=== PATIENT | female | born 1975 | race Caucasian/White ===

== ENCOUNTER 2018-06-06 17:06 | Inpatient (IN) | payer BC, MEDICAID ==
[~2018-06-06] VITALS: Ht 162.6 cm; Wt 55.3 kg
[2018-06-06] MEDS ORDERED: TRAZODONE HCL50 MG ORAL (17:29)
[2018-06-06] MEDS ORDERED: CYMBALTA60 MG ORAL (17:29)
[2018-06-06] MEDS ORDERED: VISTARIL50 MG ORAL (17:29)
[2018-06-06] MEDS ORDERED: WELLBUTRIN XL150 MG ORAL (17:29)
[2018-06-06] MEDS ORDERED: DICLOFENAC SODI75 MG ORAL (17:29)
[2018-06-06] MEDS ORDERED: GABAPENTIN400 MG ORAL (17:29)
[2018-06-06 17:40] VITALS: BP 112/80
[2018-06-06] MEDS ORDERED: Sodium Polystyrene Sulfonate 15gm Powder ORAL ONE (18:30)
[2018-06-06 19:18] LABS: BASOPHILS % (AUTO) 1.8 % (0.0-2.0); EOSINOPHILS % (AUTO) 1.9 % (0.0-3.0); HEMATOCRIT 43.2 % (37.0-47.0); HEMOGLOBIN 15.6 G/DL (12.0-16.0); LYMPHOCYTES % (AUTO) 29.4 % (20.0-45.0); MEAN CORPUSCULAR VOLUME 92 FL (80-99); MONOCYTES % (AUTO) 6.6 % (1.0-10.0); NEUTROPHILS % (AUTO) 60.3 % (45.0-75.0); PLATELET COUNT 276 K/UL (150-450); RED CELL DISTRIBUTION WIDTH 10.6 % (11.6-14.8); WHITE BLOOD COUNT 5.5 K/UL (4.8-10.8)
[2018-06-06 19:27] LABS: ANION GAP 4 mmol/L (5-15); BLOOD UREA NITROGEN 13 mg/dL (7-18); CALCIUM 9.8 MG/DL (8.5-10.1); CARBON DIOXIDE 33 MMOL/L (21-32); CHLORIDE 100 MMOL/L (98-107); POTASSIUM 4.9 MMOL/L (3.5-5.1); SODIUM 137 MMOL/L (136-145)
[2018-06-06 19:34] LABS: ALANINE AMINOTRANSFERASE 29 U/L (12-78); ALBUMIN 3.9 G/DL (3.4-5.0); ALBUMIN/GLOBULIN RATIO 1.1 (1.0-2.7); ALKALINE PHOSPHATASE 63 U/L (46-116); ASPARTATE AMINO TRANSFERASE 21 U/L (15-37); BILIRUBIN,TOTAL 0.4 MG/DL (0.2-1.0)
[2018-06-06 20:03] VITALS: BP 123/83
--- NOTE | 2018-06-06 20:17 | Diagnostic Imaging Report ---
EXAM: CT Abdomen and Pelvis With Intravenous Contrast CLINICAL HISTORY: ABD DIST TECHNIQUE: Axial computed tomography images of the abdomen and pelvis with intravenous contrast. CTDI is 0.15, 11.49 mGy and DLP is 603 mGy-cm. One or more of the following dose reduction techniques were used: automated exposure control, adjustment of the mA and/or kV according to patient size, use of iterative reconstruction technique. Coronal and sagittal reformatted images were created and reviewed. COMPARISON: No relevant prior studies available. FINDINGS: Lung bases: Mild atelectasis at the lung bases. Mediastinum: Small hiatal hernia. ABDOMEN: Liver: 1.7 x 1.5 cm low-density lesion in the liver adjacent to the inferior vena cava. Recommend follow-up abdominal CT or MR in 6 months for patients with low risk of malignancy, multiphasic MR for average risk patients and core biopsy for high risk patients. Gallbladder and bile ducts: The gallbladder is unremarkable. No calcified stones. No ductal dilation. Pancreas: The pancreas is unremarkable. No ductal dilation. Spleen: The spleen is unremarkable. Adrenals: The adrenals are unremarkable. Kidneys and ureters: The kidneys are unremarkable. No hydronephrosis. Stomach and bowel: Large amount of stool throughout the colon. This appears most prominent in the ascending and transverse colon. A focal area of narrowing is seen in the region of the sigmoid colon in the left lower quadrant (image 65 of series 3). This may be related to a focal area of spasm. A stricture or neoplastic process cannot entirely be excluded. Consider barium enema exam or colonoscopy for further evaluation. No definite evidence for bowel related inflammatory changes. PELVIS: Appendix: The appendix is questionably visualized in the lower abdomen/upper pelvis and is unremarkable. Bladder: The bladder is grossly unremarkable. Reproductive: Unremarkable as visualized. ABDOMEN and PELVIS: Intraperitoneal space: No free intraperitoneal fluid or free intraperitoneal gas. Bones/joints: Mild degenerative changes of the thoracolumbar spine. No acute fracture. No dislocation. Soft tissues: Unremarkable. Vasculature: The aorta is unremarkable. No abdominal aortic aneurysm. Lymph nodes: Unremarkable. No enlarged lymph nodes. Tubes, lines and devices: Intrauterine device within the uterus. IMPRESSION: 1. Large amount of stool throughout the colon. This appears most prominent in the ascending and transverse colon. 2. A focal area of narrowing is seen in the region of the sigmoid colon in the left lower quadrant (image 65 of series 3). This may be related to a focal area of spasm. A stricture or neoplastic process cannot entirely be excluded. Consider barium enema exam or colonoscopy for further evaluation. 3. Small hiatal hernia. 4. 1.7 x 1.5 cm low-density lesion in the liver adjacent to the inferior vena cava. Recommend follow-up abdominal CT or MR in 6 months for patients with low risk of malignancy, multiphasic MR for average risk patients and core biopsy for high risk patients.
--- NOTE | 2018-06-06 21:32 | Emergency Room Report ---
History of Present Illness General Chief Complaint: Abdominal Pain Source: Patient Present Illness Allergies: Coded Allergies: No Known Allergies (Unverified , 06/06/18) Patient History Past Medical History: see triage record, other - as per history of present illness Pertinent Family History: other - Social History: Reports: alcohol use, drug use - methamphetamine Last Menstrual Period: one month ago Nursing Documentation-[facility] Past Medical History: No History, Except For Hx Cardiac Problems: No Hx Hypertension: No Hx Pacemaker: No Hx Asthma: No Hx COPD: No Hx Diabetes: No Hx Cancer: No Hx Gastrointestinal Problems: Yes - Hepatitis C Hx Dialysis: No History Of Psychiatric Problem: Yes - Depression Hx Neurological Problems: No Hx Cerebrovascular Accident: No Hx Seizures: No Review of Systems Constitutional: Denies: fever, malaise Gastrointestinal: Reports: abdominal pain, constipation, nausea, vomiting All Other Systems: negative except mentioned in HPI Physical Exam Vital Signs Date Time Temp Pulse Resp B/P (MAP) Pulse Ox O2 Delivery O2 Flow Rate FiO2 06/06/18 17:21 97.8 66 16 112/80 99 Room Air 97.9 Sp02 EP Interpretation: reviewed, normal General Appearance: no apparent distress, alert, GCS 15, non-toxic Head: normocephalic, atraumatic Eyes: bilateral eye normal inspection ENT: hearing grossly normal, normal pharynx, no angioedema, normal voice Neck: full range of motion, supple/symm/no masses Respiratory: chest non-tender, lungs clear, normal breath sounds, speaking full sentences Cardiovascular #1: regular rate, rhythm, no edema Cardiovascular #2: 2+ carotid (R), 2+ carotid (L), 2+ radial (R), 2+ radial (L) , 2+ dorsalis pedis (R), 2+ dorsalis pedis (L) Gastrointestinal: normal bowel sounds, non tender, soft, no guarding, no rebound, distended, other - soft small umbilical hernia Musculoskeletal: back normal, gait/station normal, normal range of motion, non- tender, calf tenderness Neurologic: alert, oriented x3, responsive, motor strength/tone normal, sensory intact, speech normal Psychiatric: judgement/insight normal, memory normal, mood/affect normal, no suicidal/homicidal ideation Skin: normal color, no rash, warm/dry, well hydrated Lymphatic: no adenopathy Medical Decision Making Diagnostic Impression: Primary Impression: Large bowel obstruction ER Course Patient has large bowel obstruction, possible due to colon mass or stricture. Dr. Reid accepted patient on behalf of Dr. Torres. I consulted Dr. Crowe general surgeon who will consult. Labs Test 06/06/18 18:30 White Blood Count 5.5 K/UL (4.8-10.8) Red Blood Count 4.70 M/UL (4.20-5.40) Hemoglobin 15.6 G/DL (12.0-16.0) Hematocrit 43.2 % (37.0-47.0) Mean Corpuscular Volume 92 FL (80-99) Mean Corpuscular Hemoglobin 33.2 PG (27.0-31.0) Mean Corpuscular Hemoglobin Concent 36.0 G/DL (32.0-36.0) Red Cell Distribution Width 10.6 % (11.6-14.8) Platelet Count 276 K/UL (150-450) Mean Platelet Volume 5.4 FL (6.5-10.1) Neutrophils (%) (Auto) 60.3 % (45.0-75.0) Lymphocytes (%) (Auto) 29.4 % (20.0-45.0) Monocytes (%) (Auto) 6.6 % (1.0-10.0) Eosinophils (%) (Auto) 1.9 % (0.0-3.0) Basophils (%) (Auto) 1.8 % (0.0-2.0) Sodium Level 137 MMOL/L (136-145) Potassium Level 4.9 MMOL/L (3.5-5.1) Chloride Level 100 MMOL/L (98-107) Carbon Dioxide Level 33 MMOL/L (21-32) Anion Gap 4 mmol/L (5-15) Blood Urea Nitrogen 13 mg/dL (7-18) Creatinine 1.0 MG/DL (0.55-1.30) Estimat Glomerular Filtration Rate > 60 mL/min (>60) Glucose Level 80 MG/DL (74-106) Calcium Level 9.8 MG/DL (8.5-10.1) Total Bilirubin 0.4 MG/DL (0.2-1.0) Aspartate Amino Transf (AST/SGOT) 21 U/L (15-37) Alanine Aminotransferase (ALT/SGPT) 29 U/L (12-78) Alkaline Phosphatase 63 U/L (46-116) Total Protein 7.6 G/DL (6.4-8.2) Albumin 3.9 G/DL (3.4-5.0) Globulin 3.7 g/dL Albumin/Globulin Ratio 1.1 (1.0-2.7) Lipase 398 U/L (73-393) Human Chorionic Gonadotropin, Qual Negative (NEGATIVE) CT/MRI/US Diagnostic Results CT/MRI/US Diagnostic Results : Imaging Test Ordered: CT A/P large amount of stool in colon with narrowing at sigmoid colon Last Vital Signs Date Time Temp Pulse Resp B/P (MAP) Pulse Ox O2 Delivery O2 Flow Rate FiO2 06/06/18 20:03 78 17 123/83 100 Room Air 06/06/18 17:40 97.9 97.9 Disposition: ADMITTED INPATIENT Condition: Stable Referrals: NOT CHOSEN IPA/,REFERRING (PCP) Rose Mary Canas MD Jun 06, 2018 21:31
--- NOTE | 2018-06-06 21:58 | History and Physical ---
History of Present Illness General Date patient seen: Jun 06, 2018 Time patient seen: 22:00 Reason for Hospitalization: Abdominal Pain Present Illness HPI 42 yo woman presenting to ED with abdominal pain Found to have large bowel obstruction on CT Surgery consulted Admitted for further workup Notes abdominal pain on lower quadrants, particularly on left Has not had BM in 14 days; notes flatus Mild nausea no vomiting No fevers or chills PMHx: As per HPI Anxiety, depression, Bulimia FHx: Reviewed; not pertinent for this encounter SHx; No tobacco; + EtOH +meth in past Allergies: Coded Allergies: No Known Allergies (Unverified , 06/06/18) Medication History Scheduled Bupropion Hcl* (Wellbutrin Xl*), 150 MG ORAL DAILY, (Reported) Diclofenac Sod* (Voltaren*), 75 MG ORAL BID, (Reported) Duloxetine Hcl* (Cymbalta*), 60 MG ORAL DAILY, (Reported) Gabapentin* (Gabapentin*), 400 MG ORAL EVERY 6 HOURS, (Reported) Hydroxyzine Pamoate* (Vistaril*), 25 MG ORAL DAILY, (Reported) Trazodone Hcl* (Desyrel*), 50 MG ORAL BEDTIME, (Reported) Patient History Healthcare decision maker Resuscitation status Advanced Directive on File Review of Systems Constitutional: Reports: malaise, weakness Eye: Reports: no symptoms ENT: Reports: no symptoms Respiratory: Reports: no symptoms Cardiovascular: Reports: no symptoms Gastrointestinal: Reports: abdominal pain, constipation, nausea Genitourinary: Reports: no symptoms Musculoskeletal: Reports: no symptoms Skin: Reports: no symptoms Psychiatric: Reports: see HPI Neurological: Reports: no symptoms Endocrine: Reports: no symptoms Hematologic/Lymphatic: Reports: no symptoms All Other Systems: negative except mentioned in HPI Physical Exam General Appearance: mild distress Lines, tubes and drains: peripheral HEENT: normocephalic, atraumatic, anicteric, PERRL, EOMI Neck: non-tender, supple Respiratory/Chest: chest wall non-tender, lungs clear Cardiovascular/Chest: normal peripheral pulses, normal rate, regular rhythm Abdomen: decreased bowel sounds, distended, tender Extremities: normal range of motion, no calf tenderness, normal capillary refill Skin Exam: normal pigmentation, warm/dry 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, alert Lymphatic: anterior cervical, posterior cervical (L) Last 24 Hour Vital Signs Date Time Temp Pulse Resp B/P (MAP) Pulse Ox O2 Delivery O2 Flow Rate FiO2 06/06/18 20:03 78 17 123/83 100 Room Air 06/06/18 17:40 97.9 66 16 112/80 99 Room Air 97.9 06/06/18 17:21 97.8 66 16 112/80 99 Room Air 97.9 Laboratory Tests Test 06/06/18 18:30 White Blood Count 5.5 K/UL (4.8-10.8) Red Blood Count 4.70 M/UL (4.20-5.40) Hemoglobin 15.6 G/DL (12.0-16.0) Hematocrit 43.2 % (37.0-47.0) Mean Corpuscular Volume 92 FL (80-99) Mean Corpuscular Hemoglobin 33.2 PG (27.0-31.0) H Mean Corpuscular Hemoglobin Concent 36.0 G/DL (32.0-36.0) Red Cell Distribution Width 10.6 % (11.6-14.8) L Platelet Count 276 K/UL (150-450) Mean Platelet Volume 5.4 FL (6.5-10.1) L Neutrophils (%) (Auto) 60.3 % (45.0-75.0) Lymphocytes (%) (Auto) 29.4 % (20.0-45.0) Monocytes (%) (Auto) 6.6 % (1.0-10.0) Eosinophils (%) (Auto) 1.9 % (0.0-3.0) Basophils (%) (Auto) 1.8 % (0.0-2.0) Sodium Level 137 MMOL/L (136-145) Potassium Level 4.9 MMOL/L (3.5-5.1) Chloride Level 100 MMOL/L (98-107) Carbon Dioxide Level 33 MMOL/L (21-32) H Anion Gap 4 mmol/L (5-15) L Blood Urea Nitrogen 13 mg/dL (7-18) Creatinine 1.0 MG/DL (0.55-1.30) Estimat Glomerular Filtration Rate > 60 mL/min (>60) Glucose Level 80 MG/DL (74-106) Calcium Level 9.8 MG/DL (8.5-10.1) Total Bilirubin 0.4 MG/DL (0.2-1.0) Aspartate Amino Transf (AST/SGOT) 21 U/L (15-37) Alanine Aminotransferase (ALT/SGPT) 29 U/L (12-78) Alkaline Phosphatase 63 U/L (46-116) Total Protein 7.6 G/DL (6.4-8.2) Albumin 3.9 G/DL (3.4-5.0) Globulin 3.7 g/dL Albumin/Globulin Ratio 1.1 (1.0-2.7) Lipase 398 U/L (73-393) H Human Chorionic Gonadotropin, Qual Negative (NEGATIVE) Height (Feet): 5 Height (Inches): 4.00 Weight (Pounds): 120 Medications Current Medications Medications (Trade) Dose Ordered Sig/Devora Route PRN Reason Start Time Stop Time Status Last Admin Dose Admin Barium Sulfate (Readi-Cat 2) 450 ml NOW PRN ORAL Radiology Procedure 06/06/18 18:30 06/08/18 18:28 Sodium Chloride 1,000 ml @ 100 mls/hr Q10H ONCE IV 06/06/18 18:28 06/07/18 04:27 06/06/18 19:06 Assessment/Plan Status: not improved Status Narrative 42 yo woman with abdominal pain, obstipation and large bowel obstruction seen on CT scan Assessment/Plan #Large bowel obstruction Abdominal pain -Surgery input appreciated -Admit for further workup/management -NPO/Pain meds/IVF's GI consult given ?area of stricture in sigmoid colon #Elevated lipase Pancreatitis -Unclear etiology- likely EtOH -CT scan reviewed- no pancreatic lesions -IVF's/NPO #Depression/anxiety -continue home meds DVT Prophylaxis: SCD's Code Status: Full Hospital Classification declaration: Based on this initial evaluation and depending on the patient's clinical course I anticipate that this patient will require hospitalization for at least 2-3 days Disposition: Once the patient is stable to leave the hospital I anticipate the patient will likely be discharged to the following environment: Home I spent 70 minutes on this patients care and 36 minutes was dedicated to counseling and care coordination Time of note may not reflect time of encounter Maxime Reid MD Jun 06, 2018 21:58
[2018-06-06 22:00] VITALS: BP 139/88
[2018-06-06 22:13] VITALS: BP 124/86
--- NOTE | 2018-06-06 22:58 | Consultation ---
History of Present Illness General Date patient seen: Jun 06, 2018 Chief Complaint: Abdominal Pain Reason for Consultation: Large Bowel Obstruction Present Illness HPI 42 year old female with past medical history of anxiety, depression, bulimia presented to ED with complaints of abdominal pain. Patient states that she was well approximately 1 month ago but since has been developing worsening abdominal discomfort. She went to an urgent care facility this evening and after work up was told to come to ED for further evaluation. She was noted to have a distended abdomen with significant tenderness on palpation. In ED she had a CT scan which demonstrated significant stool retention in entire colon and possible stricture in sigmoid colon. She was admitted for care and management. Surgery called to evaluate for possible large bowel obstruction. Patient seen, chart reviewed, patient examined. States that she has been passing flatus even today but has not had a BM in 14 days. she is usually regular with daily BM's except for the past two weeks. denies nausea or emesis. no fever or chills. labs demonstrate elevated lipase. no prior episodes. history of two prior c sections. Allergies: Coded Allergies: No Known Allergies (Unverified , 06/06/18) Medication History Scheduled Bupropion Hcl* (Wellbutrin Xl*), 150 MG ORAL DAILY, (Reported) Diclofenac Sod* (Voltaren*), 75 MG ORAL BID, (Reported) Duloxetine Hcl* (Cymbalta*), 60 MG ORAL DAILY, (Reported) Gabapentin* (Gabapentin*), 400 MG ORAL EVERY 6 HOURS, (Reported) Hydroxyzine Pamoate* (Vistaril*), 25 MG ORAL DAILY, (Reported) Trazodone Hcl* (Desyrel*), 50 MG ORAL BEDTIME, (Reported) Patient History History Provided By: Patient, Medical Record, PMD Healthcare decision maker Resuscitation status Full Code Advanced Directive on File Past Medical/Surgical History Past Medical/Surgical History: (1) Large bowel obstruction Review of Systems Constitutional: Denies: no symptoms, see HPI, chills, sweats, fever, malaise, weakness, other Eye: Denies: no symptoms, see HPI, eye pain, blurred vision, tearing, double vision, nose pain, nose congestion, acuity changes, discharge, other ENT: Denies: no symptoms, see HPI, ear pain, ear discharge, nose pain, nose congestion, throat pain, throat swelling, mouth pain, hearing loss, nasal discharge, other Respiratory: Denies: no symptoms, see HPI, cough, orthopnea, shortness of breath, stridor, wheezing, EPPERSON, sputum, other Gastrointestinal: Reports: abdominal pain, constipation Genitourinary: Denies: no symptoms, see HPI, discharge, dysuria, frequency, hematuria, pain, retention, incontinence, urgency, vag bleed/dc, other Musculoskeletal: Denies: no symptoms, see HPI, back pain, gout, joint pain, joint swelling, muscle pain, muscle stiffness, other Skin: Denies: no symptoms, see HPI, rash, change in color, change in hair/nails , dryness, lesions, other Psychiatric: Denies: no symptoms, see HPI, prior hx, anxiety, depressed feelings, emotional problems, SI, HI, hallucinations, other Neurological: Denies: no symptoms, see HPI, headache, numbness, paresthesia, seizure, tingling, tremors, focal weakness, syncope, dizziness, other Endocrine: Denies: no symptoms, see HPI, excessive sweating, flushing, intolerance to temperature, increased thirst, increased urine, unexplained weight loss, other Hematologic/Lymphatic: Denies: no symptoms, see HPI, anemia, blood clots, easy bleeding, easy bruising, swollen glands, diathesis, other Physical Exam General Appearance: no apparent distress, alert Lines, tubes and drains: peripheral HEENT: normocephalic, atraumatic, mucous membranes moist, PERRL Neck: supple, normal inspection Respiratory/Chest: lungs clear, normal breath sounds, no respiratory distress, no accessory muscle use Cardiovascular/Chest: normal peripheral pulses, normal rate, regular rhythm Abdomen: soft, distended, guarding, tender, mass, other - stool mass palpable Genitourinary/Rectal: other Extremities: normal inspection, no calf tenderness, normal capillary refill Skin Exam: normal pigmentation, warm/dry Neurologic: alert, oriented x 3, responsive Last 24 Hour Vital Signs Date Time Temp Pulse Resp B/P (MAP) Pulse Ox O2 Delivery O2 Flow Rate FiO2 06/06/18 22:28 Room Air 06/06/18 22:13 97.9 69 124/86 (99) 97.9 06/06/18 20:03 78 17 123/83 100 Room Air 06/06/18 17:40 97.9 66 16 112/80 99 Room Air 97.9 06/06/18 17:21 97.8 66 16 112/80 99 Room Air 97.9 Laboratory Tests Test 06/06/18 18:30 White Blood Count 5.5 K/UL (4.8-10.8) Red Blood Count 4.70 M/UL (4.20-5.40) Hemoglobin 15.6 G/DL (12.0-16.0) Hematocrit 43.2 % (37.0-47.0) Mean Corpuscular Volume 92 FL (80-99) Mean Corpuscular Hemoglobin 33.2 PG (27.0-31.0) H Mean Corpuscular Hemoglobin Concent 36.0 G/DL (32.0-36.0) Red Cell Distribution Width 10.6 % (11.6-14.8) L Platelet Count 276 K/UL (150-450) Mean Platelet Volume 5.4 FL (6.5-10.1) L Neutrophils (%) (Auto) 60.3 % (45.0-75.0) Lymphocytes (%) (Auto) 29.4 % (20.0-45.0) Monocytes (%) (Auto) 6.6 % (1.0-10.0) Eosinophils (%) (Auto) 1.9 % (0.0-3.0) Basophils (%) (Auto) 1.8 % (0.0-2.0) Sodium Level 137 MMOL/L (136-145) Potassium Level 4.9 MMOL/L (3.5-5.1) Chloride Level 100 MMOL/L (98-107) Carbon Dioxide Level 33 MMOL/L (21-32) H Anion Gap 4 mmol/L (5-15) L Blood Urea Nitrogen 13 mg/dL (7-18) Creatinine 1.0 MG/DL (0.55-1.30) Estimat Glomerular Filtration Rate > 60 mL/min (>60) Glucose Level 80 MG/DL (74-106) Calcium Level 9.8 MG/DL (8.5-10.1) Total Bilirubin 0.4 MG/DL (0.2-1.0) Aspartate Amino Transf (AST/SGOT) 21 U/L (15-37) Alanine Aminotransferase (ALT/SGPT) 29 U/L (12-78) Alkaline Phosphatase 63 U/L (46-116) Total Protein 7.6 G/DL (6.4-8.2) Albumin 3.9 G/DL (3.4-5.0) Globulin 3.7 g/dL Albumin/Globulin Ratio 1.1 (1.0-2.7) Lipase 398 U/L (73-393) H Human Chorionic Gonadotropin, Qual Negative (NEGATIVE) Height (Feet): 5 Height (Inches): 4.00 Weight (Pounds): 120 Medications Current Medications Medications (Trade) Dose Ordered Sig/Devora Route PRN Reason Start Time Stop Time Status Last Admin Dose Admin Barium Sulfate (Readi-Cat 2) 450 ml NOW PRN ORAL Radiology Procedure 06/06/18 18:30 06/08/18 18:28 Sodium Chloride 1,000 ml @ 100 mls/hr Q10H ONCE IV 06/06/18 18:28 06/07/18 04:27 06/06/18 19:06 Assessment/Plan Problem List: (1) Large bowel obstruction Assessment & Plan: 42 year old female with large bowel obstruction. etiology unknown. has been obstructed for 14+ days likely. CT with significant stool throughout colon. exam with distention and palpable enlarged stool filled colon. CT demonstrates area of possible sigmoid structure vs mass? 1. Large amount of stool throughout the colon. This appears most prominent in the ascending and transverse colon. 2. A focal area of narrowing is seen in the region of the sigmoid colon in the left lower quadrant (image 65 of series 3). This may be related to a focal area of spasm. A stricture or neoplastic process cannot entirely be excluded. Consider barium enema exam or colonoscopy for further evaluation. -NPO -IV fluids -does not need NG tube at this time. mainly large bowel obstruction but dose have some fluid filled small bowel but no n/v -will discuss with GI. will likely need colonoscopy but concerns for prep given how distended her colon is with stool. will start with some enemas -appreciate GI input -thank you for this consultation. will follow with recs. ICD Codes: K56.609 - Unspecified intestinal obstruction, unspecified as to partial versus complete obstruction SNOMED: [id number] Status: unchanged Alec Crowe Jun 06, 2018 22:58
[2018-06-06] MEDS ORDERED: Acetaminophen 650 MG SUPP RECTAL PRN (23:00)
[2018-06-06] MEDS ORDERED: Morphine Sulfate 2mg/ml Inj IVP PRN (23:00)
[2018-06-06] MEDS: TraZODone HCl 25 mg tablet ORAL SCH ×2 (23:00→23:55)
[2018-06-06] MEDS ORDERED: LORazepam Inj 2mg/ml 1ml IV PRN (23:00)
[2018-06-06] MEDS ORDERED: DiphenhydrAMINE 50mg/ml Inj IVP PRN (23:15)
[2018-06-06] MEDS: D5 1/2NS w/KCl 20mEq 1,000 ML IV SCH (23:56)
[2018-06-07] VITALS: BP 124/86
[2018-06-07] MEDS: Morphine Sulfate 2mg/ml Inj IVP PRN ×2 (01:16→17:48)
[2018-06-07 06:36] LABS: BASOPHILS % (AUTO) 1.4 % (0.0-2.0); EOSINOPHILS % (AUTO) 2.1 % (0.0-3.0); HEMATOCRIT 42.6 % (37.0-47.0); HEMOGLOBIN 15.3 G/DL (12.0-16.0); LYMPHOCYTES % (AUTO) 28.8 % (20.0-45.0); MEAN CORPUSCULAR VOLUME 91 FL (80-99); MONOCYTES % (AUTO) 7.9 % (1.0-10.0); NEUTROPHILS % (AUTO) 59.7 % (45.0-75.0); PLATELET COUNT 241 K/UL (150-450); RED CELL DISTRIBUTION WIDTH 10.4 % (11.6-14.8); WHITE BLOOD COUNT 4.8 K/UL (4.8-10.8)
[2018-06-07 06:50] LABS: ALANINE AMINOTRANSFERASE 23 U/L (12-78); ALBUMIN 3.2 G/DL (3.4-5.0); ALKALINE PHOSPHATASE 53 U/L (46-116); ANION GAP 3 mmol/L (5-15); ASPARTATE AMINO TRANSFERASE 17 U/L (15-37); BILIRUBIN,TOTAL 0.3 MG/DL (0.2-1.0); BLOOD UREA NITROGEN 13 mg/dL (7-18); CALCIUM 8.9 MG/DL (8.5-10.1); CARBON DIOXIDE 33 MMOL/L (21-32); CHLORIDE 106 MMOL/L (98-107); CREATININE 1.1 MG/DL (0.55-1.30); POTASSIUM 4.6 MMOL/L (3.5-5.1); SODIUM 142 MMOL/L (136-145)
[2018-06-07 08:00] VITALS: BP 133/83
[2018-06-07] MEDS: BuPROPion XL 150mg tab ORAL SCH (09:00)
[2018-06-07] MEDS: DULoxetine 30mg cap ORAL SCH (09:00)
[2018-06-07] MEDS: HydrOXYzine 50mg tab ORAL SCH (09:00)
[2018-06-07] MEDS: D5 1/2NS w/KCl 20mEq 1,000 ML IV SCH ×2 (10:09→20:18)
[2018-06-07] MEDS: Fleet's Enema 133ml RECTAL SCH ×3 (10:09→20:19)
--- NOTE | 2018-06-07 10:22 | General Surgery Progress Note ---
General Surgery-Progress Note Subjective Additional Comments no acute events. states pain a bit better. no n/v/f/c. flatus but no BM yet. Objective Last 24 Hour Vital Signs Date Time Temp Pulse Resp B/P (MAP) Pulse Ox O2 Delivery O2 Flow Rate FiO2 06/07/18 08:00 97.9 68 18 133/83 (100) 100 97.9 06/07/18 00:00 97.9 69 124/86 (99) 97.9 06/06/18 22:28 Room Air 06/06/18 22:13 97.9 69 124/86 (99) 97.9 06/06/18 22:00 65 19 139/88 100 Room Air 06/06/18 22:00 65 19 139/88 100 Room Air 06/06/18 20:03 78 17 123/83 100 Room Air 06/06/18 17:40 97.9 66 16 112/80 99 Room Air 97.9 06/06/18 17:21 97.8 66 16 112/80 99 Room Air 97.9 Drains: none Cardiovascular: RSR Respiratory: clear Abdomen: soft, distended, tenderness, present bowel sounds Extremities: no edema, no tenderness, no cyanosis Laboratory Tests Test 06/06/18 18:30 06/07/18 05:30 White Blood Count 5.5 K/UL (4.8-10.8) 4.8 K/UL (4.8-10.8) Red Blood Count 4.70 M/UL (4.20-5.40) 4.70 M/UL (4.20-5.40) Hemoglobin 15.6 G/DL (12.0-16.0) 15.3 G/DL (12.0-16.0) Hematocrit 43.2 % (37.0-47.0) 42.6 % (37.0-47.0) Mean Corpuscular Volume 92 FL (80-99) 91 FL (80-99) Mean Corpuscular Hemoglobin 33.2 PG (27.0-31.0) H 32.5 PG (27.0-31.0) H Mean Corpuscular Hemoglobin Concent 36.0 G/DL (32.0-36.0) 35.9 G/DL (32.0-36.0) Red Cell Distribution Width 10.6 % (11.6-14.8) L 10.4 % (11.6-14.8) L Platelet Count 276 K/UL (150-450) 241 K/UL (150-450) Mean Platelet Volume 5.4 FL (6.5-10.1) L 6.0 FL (6.5-10.1) L Neutrophils (%) (Auto) 60.3 % (45.0-75.0) 59.7 % (45.0-75.0) Lymphocytes (%) (Auto) 29.4 % (20.0-45.0) 28.8 % (20.0-45.0) Monocytes (%) (Auto) 6.6 % (1.0-10.0) 7.9 % (1.0-10.0) Eosinophils (%) (Auto) 1.9 % (0.0-3.0) 2.1 % (0.0-3.0) Basophils (%) (Auto) 1.8 % (0.0-2.0) 1.4 % (0.0-2.0) Sodium Level 137 MMOL/L (136-145) 142 MMOL/L (136-145) Potassium Level 4.9 MMOL/L (3.5-5.1) 4.6 MMOL/L (3.5-5.1) Chloride Level 100 MMOL/L (98-107) 106 MMOL/L (98-107) Carbon Dioxide Level 33 MMOL/L (21-32) H 33 MMOL/L (21-32) H Anion Gap 4 mmol/L (5-15) L 3 mmol/L (5-15) L Blood Urea Nitrogen 13 mg/dL (7-18) 13 mg/dL (7-18) Creatinine 1.0 MG/DL (0.55-1.30) 1.1 MG/DL (0.55-1.30) Estimat Glomerular Filtration Rate > 60 mL/min (>60) 53.9 mL/min (>60) Glucose Level 80 MG/DL (74-106) 86 MG/DL (74-106) Calcium Level 9.8 MG/DL (8.5-10.1) 8.9 MG/DL (8.5-10.1) Total Bilirubin 0.4 MG/DL (0.2-1.0) 0.3 MG/DL (0.2-1.0) Aspartate Amino Transf (AST/SGOT) 21 U/L (15-37) 17 U/L (15-37) Alanine Aminotransferase (ALT/SGPT) 29 U/L (12-78) 23 U/L (12-78) Alkaline Phosphatase 63 U/L (46-116) 53 U/L (46-116) Total Protein 7.6 G/DL (6.4-8.2) 6.4 G/DL (6.4-8.2) Albumin 3.9 G/DL (3.4-5.0) 3.2 G/DL (3.4-5.0) L Globulin 3.7 g/dL 3.2 g/dL Albumin/Globulin Ratio 1.1 (1.0-2.7) 1.0 (1.0-2.7) Lipase 398 U/L (73-393) H 184 U/L (73-393) Human Chorionic Gonadotropin, Qual Negative (NEGATIVE) Prothrombin Time 10.6 SEC (9.30-11.50) Prothromb Time International Ratio 1.0 (0.9-1.1) Activated Partial Thromboplast Time 28 SEC (23-33) Plan Problems: (1) Large bowel obstruction Assessment & Plan: 42 year old female with large bowel obstruction. etiology unknown. has been obstructed for 14+ days likely. CT with significant stool throughout colon. exam with distention and palpable enlarged stool filled colon. CT demonstrates area of possible sigmoid structure vs mass? 1. Large amount of stool throughout the colon. This appears most prominent in the ascending and transverse colon. 2. A focal area of narrowing is seen in the region of the sigmoid colon in the left lower quadrant (image 65 of series 3). This may be related to a focal area of spasm. A stricture or neoplastic process cannot entirely be excluded. Consider barium enema exam or colonoscopy for further evaluation. -NPO (hold oral meds for now unless necessary) okay for some ice chips for comfort -IV fluids -does not need NG tube at this time. mainly large bowel obstruction but dose have some fluid filled small bowel but no n/v -will discuss with GI. will likely need colonoscopy but concerns for prep given how distended her colon is with stool. will start with some enemas -Enema's q8h for 48hrs. -thank you for this consultation. will follow with recs. Alec Crowe Jun 07, 2018 10:22
--- NOTE | 2018-06-07 10:37 | Diagnostic Imaging Report ---
INDICATION: Abdominal distention COMPARISON: CT dated 06/06/18 FINDINGS: Single frontal view of the abdomen demonstrates a normal bowel gas pattern. Copious amounts of stool are seen in the colon suggestive of constipation. Intrauterine device. No evidence of organomegaly or obvious soft tissue masses. Focal calcification adjacent to the right femoral head measuring 2.2 cm. The osseous structures are intact. IMPRESSION: 1. Copious amounts of stool in the colon suggestive of constipation. 2. intrauterine device.
--- NOTE | 2018-06-07 11:00 | General Progress Note ---
Assessment/Plan Status: not improved Status Narrative 42 yo woman with abdominal pain, obstipation and large bowel obstruction seen on CT scan Assessment/Plan #Large bowel obstruction Abdominal pain -Surgery input appreciated -NPO/Pain meds/IVF's -GI consult given ?area of stricture in sigmoid colon for colonoscopy -Enemas Q8 to prep bowel #Elevated lipase Pancreatitis -Unclear etiology- likely EtOH -CT scan reviewed- no pancreatic lesions -IVF's/NPO #Depression/anxiety -continue home meds DVT Prophylaxis: scd's Code status: full Hospital Classification declaration: Based on this initial evaluation, and depending on the patient's clinical course, I anticipate that this patient will require hospitalization for 2-3 days. Disposition: Once the patient is stable to leave the hospital, I anticipate the patient will likely be discharged to the following environment:Home I spent 45 minutes on this patient's case, and 23 minutes was dedicated to counseling and/or care coordination. Time of note may not reflect time of encounter. Subjective Date patient seen: Jun 07, 2018 Time patient seen: 11:22 ROS Limited/Unobtainable: No Constitutional: Reports: malaise, weakness HEENT: Reports: no symptoms Cardiovascular: Reports: no symptoms Respiratory: Reports: no symptoms Gastrointestinal/Abdominal: Reports: abdomen distended, abdominal pain, constipated, nausea, poor appetite, poor fluid intake Genitourinary: Reports: no symptoms Neurologic/Psychiatric: Reports: anxiety Endocrine: Reports: no symptoms Hematologic/Lymphatic: Reports: no symptoms Allergies: Coded Allergies: No Known Allergies (Unverified , 06/06/18) All Systems: reviewed and negative except above Subjective Events of overnight noted Chart reviewed by me Patient with continued pain and abdominal distension Had enema but was unable to keep fluid in Objective Last 24 Hour Vital Signs Date Time Temp Pulse Resp B/P (MAP) Pulse Ox O2 Delivery O2 Flow Rate FiO2 06/07/18 08:00 97.9 68 18 133/83 (100) 100 97.9 06/07/18 00:00 97.9 69 124/86 (99) 97.9 06/06/18 22:28 Room Air 06/06/18 22:13 97.9 69 124/86 (99) 97.9 06/06/18 22:00 65 19 139/88 100 Room Air 06/06/18 22:00 65 19 139/88 100 Room Air 06/06/18 20:03 78 17 123/83 100 Room Air 06/06/18 17:40 97.9 66 16 112/80 99 Room Air 97.9 06/06/18 17:21 97.8 66 16 112/80 99 Room Air 97.9 Laboratory Tests 06/06/18 18:30: White Blood Count 5.5, Red Blood Count 4.70, Hemoglobin 15.6, Hematocrit 43.2, Mean Corpuscular Volume 92, Mean Corpuscular Hemoglobin 33.2H, Mean Corpuscular Hemoglobin Concent 36.0, Red Cell Distribution Width 10.6L, Platelet Count 276, Mean Platelet Volume 5.4L, Neutrophils (%) (Auto) 60.3, Lymphocytes (%) (Auto) 29.4, Monocytes (%) (Auto) 6.6, Eosinophils (%) (Auto) 1.9, Basophils (%) (Auto ) 1.8, Sodium Level 137, Potassium Level 4.9, Chloride Level 100, Carbon Dioxide Level 33H, Anion Gap 4L, Blood Urea Nitrogen 13, Creatinine 1.0, Estimat Glomerular Filtration Rate > 60, Glucose Level 80, Calcium Level 9.8, Total Bilirubin 0.4, Aspartate Amino Transf (AST/SGOT) 21, Alanine Aminotransferase (ALT/SGPT) 29, Alkaline Phosphatase 63, Total Protein 7.6, Albumin 3.9, Globulin 3.7, Albumin/Globulin Ratio 1.1, Lipase 398H, Human Chorionic Gonadotropin, Qual Negative 06/07/18 05:30: White Blood Count 4.8, Red Blood Count 4.70, Hemoglobin 15.3, Hematocrit 42.6, Mean Corpuscular Volume 91, Mean Corpuscular Hemoglobin 32.5H, Mean Corpuscular Hemoglobin Concent 35.9, Red Cell Distribution Width 10.4L, Platelet Count 241, Mean Platelet Volume 6.0L, Neutrophils (%) (Auto) 59.7, Lymphocytes (%) (Auto) 28.8, Monocytes (%) (Auto) 7.9, Eosinophils (%) (Auto) 2.1, Basophils (%) (Auto ) 1.4, Sodium Level 142, Potassium Level 4.6, Chloride Level 106, Carbon Dioxide Level 33H, Anion Gap 3L, Blood Urea Nitrogen 13, Creatinine 1.1, Estimat Glomerular Filtration Rate 53.9, Glucose Level 86, Calcium Level 8.9, Total Bilirubin 0.3, Aspartate Amino Transf (AST/SGOT) 17, Alanine Aminotransferase (ALT/SGPT) 23, Alkaline Phosphatase 53, Total Protein 6.4, Albumin 3.2L, Globulin 3.2, Albumin/Globulin Ratio 1.0, Lipase 184, Prothrombin Time 10.6, Prothromb Time International Ratio 1.0, Activated Partial Thromboplast Time 28 Height (Feet): 5 Height (Inches): 4.00 Weight (Pounds): 120 General Appearance: alert, moderate distress EENT: PERRL/EOMI, normal ENT inspection, TMs normal, pale conjunctivae Neck: non-tender, supple Cardiovascular: normal peripheral pulses, normal rate, regular rhythm Respiratory/Chest: chest wall non-tender, lungs clear Abdomen: hypoactive bowel sounds, decreased bowel sounds, distended, tender Pelvis: normal external exam Extremities: normal range of motion, no calf tenderness, normal capillary refill Edema: no edema noted Arm (L), no edema noted Arm (R), no edema noted Leg (L), no edema noted Leg (R) Neurologic: alert, responsive Skin: normal pigmentation, warm/dry, palled Lymphatic: normal anterior cervical (L), normal anterior cervical (R) Maxime Reid MD Jun 07, 2018 11:00
[2018-06-07 12:00] VITALS: BP 102/59
[2018-06-07 16:00] VITALS: BP 118/79
[2018-06-07 20:00] VITALS: BP 135/83
[2018-06-07] MEDS: TraZODone 50mg tab ORAL SCH (20:19)
[2018-06-08] VITALS: BP 101/69
[2018-06-08 04:00] VITALS: BP 100/69
[2018-06-08] MEDS: D5 1/2NS w/KCl 20mEq 1,000 ML IV SCH ×3 (06:30→20:42)
--- NOTE | 2018-06-08 06:46 | General Surgery Progress Note ---
General Surgery-Progress Note Subjective Additional Comments doing well with enema. had two bm's thus far. pain okay no n/v/f/c. Objective Last 24 Hour Vital Signs Date Time Temp Pulse Resp B/P (MAP) Pulse Ox O2 Delivery O2 Flow Rate FiO2 06/08/18 04:00 98.7 88 18 100/69 (79) 95 98.7 06/08/18 00:00 98.7 93 19 101/69 (80) 98 98.7 06/07/18 21:00 Room Air 06/07/18 20:00 99.8 101 18 135/83 (100) 97 99.8 06/07/18 16:00 98.0 87 20 118/79 (92) 97 98.0 06/07/18 12:00 97.4 73 18 102/59 (73) 97 97.4 06/07/18 09:00 Room Air 06/07/18 08:00 97.9 68 18 133/83 (100) 100 97.9 I&O Intake and Output 06/07/18 06/08/18 19:00 07:00 Intake Total 1100 ml 800 ml Balance 1100 ml 800 ml Intake IV Total 1100 ml 800 ml # Voids 5 2 # Bowel Movements 1 3 Cardiovascular: RSR Respiratory: clear Abdomen: soft, distended, tenderness, present bowel sounds Extremities: no cyanosis Plan Problems: (1) Large bowel obstruction Assessment & Plan: 42 year old female with large bowel obstruction. etiology unknown. has been obstructed for 14+ days likely. CT with significant stool throughout colon. exam with distention and palpable enlarged stool filled colon. CT demonstrates area of possible sigmoid structure vs mass? 1. Large amount of stool throughout the colon. This appears most prominent in the ascending and transverse colon. 2. A focal area of narrowing is seen in the region of the sigmoid colon in the left lower quadrant (image 65 of series 3). This may be related to a focal area of spasm. A stricture or neoplastic process cannot entirely be excluded. Consider barium enema exam or colonoscopy for further evaluation. -NPO (hold oral meds for now unless necessary) okay for some ice chips for comfort -IV fluids -does not need NG tube at this time. mainly large bowel obstruction but dose have some fluid filled small bowel but no n/v -will discuss with GI. will likely need colonoscopy but concerns for prep given how distended her colon is with stool. will start with some enemas -Enema's q8h for 48hrs. -thank you for this consultation. will follow with yvonne. Alec Crowe Jun 08, 2018 06:45
[2018-06-08 08:00] VITALS: BP 123/74
[2018-06-08] MEDS: DULoxetine 30mg cap ORAL SCH (09:28)
[2018-06-08] MEDS: HydrOXYzine 50mg tab ORAL SCH (09:28)
[2018-06-08] MEDS: BuPROPion XL 150mg tab ORAL SCH (09:28)
[2018-06-08] MEDS: Fleet's Enema 133ml RECTAL SCH ×2 (10:41→17:31)
[2018-06-08 11:50] VITALS: BP 108/75
[2018-06-08 16:00] VITALS: BP 120/82
--- NOTE | 2018-06-08 18:18 | General Progress Note ---
Assessment/Plan Status: progressing Status Narrative 42 yo woman with abdominal pain, obstipation and large bowel obstruction seen on CT scan Assessment/Plan #Large bowel obstruction #Abdominal pain -Surgery input appreciated -NPO/Pain meds/IVF's -GI consult given ?area of stricture in sigmoid colon for colonoscopy -Enemas Q8 to prep bowel -No NGT for now #Elevated lipase Pancreatitis -Unclear etiology- likely EtOH -CT scan reviewed- no pancreatic lesions -IVF's/NPO #Depression/anxiety -continue home meds DVT Prophylaxis: scd's Code status: full Hospital Classification declaration: Based on this initial evaluation, and depending on the patient's clinical course, I anticipate that this patient will require hospitalization for 2-3 days. Disposition: Once the patient is stable to leave the hospital, I anticipate the patient will likely be discharged to the following environment:Home I spent 45 minutes on this patient's case, and 23 minutes was dedicated to counseling and/or care coordination. Time of note may not reflect time of encounter. Subjective Date patient seen: Jun 08, 2018 Time patient seen: 11:33 ROS Limited/Unobtainable: No Constitutional: Reports: malaise, weakness HEENT: Reports: no symptoms Cardiovascular: Reports: no symptoms Respiratory: Reports: no symptoms Gastrointestinal/Abdominal: Reports: abdomen distended, constipated, nausea, poor appetite Genitourinary: Reports: no symptoms Neurologic/Psychiatric: Reports: anxiety, depressed Endocrine: Reports: no symptoms Hematologic/Lymphatic: Reports: no symptoms Allergies: Coded Allergies: No Known Allergies (Unverified , 06/06/18) All Systems: reviewed and negative except above Subjective Events of overnight noted Chart reviewed Patient with BMx2 Abdominal distension and pain somewhat controlled No N/V Objective Last 24 Hour Vital Signs Date Time Temp Pulse Resp B/P (MAP) Pulse Ox O2 Delivery O2 Flow Rate FiO2 06/08/18 16:00 97.0 64 18 120/82 (95) 99 97.0 06/08/18 12:04 98.6 06/08/18 11:50 98.6 98 18 108/75 (86) 98 98.6 06/08/18 11:34 98.2 06/08/18 09:00 Room Air 06/08/18 08:00 98.2 80 18 123/74 (90) 99 98.2 06/08/18 04:00 98.7 88 18 100/69 (79) 95 98.7 06/08/18 00:00 98.7 93 19 101/69 (80) 98 98.7 06/07/18 21:00 Room Air 06/07/18 20:00 99.8 101 18 135/83 (100) 97 99.8 Intake and Output 06/07/18 06/08/18 19:00 07:00 Intake Total 1100 ml 800 ml Balance 1100 ml 800 ml IV Total 1100 ml 800 ml # Voids 5 2 # Bowel Movements 1 3 Height (Feet): 5 Height (Inches): 4.00 Weight (Pounds): 120 General Appearance: alert, mild distress, thin EENT: PERRL/EOMI, normal ENT inspection, TMs normal, pharynx normal, pale conjunctivae Neck: non-tender, supple Cardiovascular: normal peripheral pulses, normal rate, regular rhythm Respiratory/Chest: chest wall non-tender, lungs clear Abdomen: decreased bowel sounds, distended, tender Pelvis: normal external exam Extremities: normal range of motion, non-tender Edema: no edema noted Arm (L), no edema noted Arm (R), no edema noted Leg (L), no edema noted Leg (R) Neurologic: alert, responsive Skin: normal pigmentation, warm/dry Lymphatic: normal anterior cervical (L), normal anterior cervical (R), normal posterior cervical (L), normal posterior cervical (R) Maxime Reid MD Jun 08, 2018 18:16
[2018-06-08 20:00] VITALS: BP 119/68
[2018-06-08] MEDS: TraZODone 50mg tab ORAL SCH (20:42)
[2018-06-09] VITALS: BP 130/89
[2018-06-09] MEDS: Fleet's Enema 133ml RECTAL SCH (00:18)
[2018-06-09 04:00] VITALS: BP 132/82
[2018-06-09] MEDS: D5 1/2NS w/KCl 20mEq 1,000 ML IV SCH ×2 (06:01→17:44)
[2018-06-09 08:34] VITALS: BP 115/82
[2018-06-09] MEDS: DULoxetine 30mg cap ORAL SCH (08:59)
[2018-06-09] MEDS: HydrOXYzine 50mg tab ORAL SCH (09:00)
[2018-06-09] MEDS: BuPROPion XL 150mg tab ORAL SCH (09:01)
--- NOTE | 2018-06-09 11:26 | General Progress Note ---
Assessment/Plan Status: stable Assessment/Plan #Large bowel obstruction #Abdominal pain -Surgery input appreciated -NPO/Pain meds/IVF's -GI consulted given ?area of stricture in sigmoid colon for colonoscopy- plan for colonoscopy tomororw -Enemas Q8 to prep bowel -No NGT for now #Elevated lipase Pancreatitis -Unclear etiology- likely EtOH -CT scan reviewed- no pancreatic lesions -IVF's/NPO #Depression/anxiety -continue home meds DVT Prophylaxis: scd's Code status: full Hospital Classification declaration: Based on this initial evaluation, and depending on the patient's clinical course, I anticipate that this patient will require hospitalization for 2-3 days. Disposition: Once the patient is stable to leave the hospital, I anticipate the patient will likely be discharged to the following environment:Home I spent 45 minutes on this patient's case, and 23 minutes was dedicated to counseling and/or care coordination. Time of note may not reflect time of encounter. Subjective Date patient seen: Jun 09, 2018 Time patient seen: 11:20 ROS Limited/Unobtainable: No Constitutional: Reports: malaise, weakness HEENT: Reports: no symptoms Cardiovascular: Reports: no symptoms Respiratory: Reports: no symptoms Gastrointestinal/Abdominal: Reports: abdomen distended, abdominal pain, constipated Genitourinary: Reports: no symptoms Neurologic/Psychiatric: Reports: no symptoms Endocrine: Reports: no symptoms Hematologic/Lymphatic: Reports: no symptoms Allergies: Coded Allergies: No Known Allergies (Unverified , 06/06/18) All Systems: reviewed and negative except above Subjective Events of overnight noted Chart reviewed Patient with BMx2 Abdominal distension and pain somewhat controlled No N/V Plan for colonoscopy tomorrow Objective Last 24 Hour Vital Signs Date Time Temp Pulse Resp B/P (MAP) Pulse Ox O2 Delivery O2 Flow Rate FiO2 06/09/18 09:00 Room Air 06/09/18 08:34 98.5 82 18 115/82 (93) 98 98.5 06/09/18 04:00 97.5 80 17 132/82 (99) 97 97.5 06/09/18 00:00 99.1 84 18 130/89 (103) 98 99.1 06/08/18 21:00 Room Air 06/08/18 20:00 98.4 78 19 119/68 (85) 98 98.4 06/08/18 16:00 97.0 64 18 120/82 (95) 99 97.0 06/08/18 12:04 98.6 06/08/18 11:50 98.6 98 18 108/75 (86) 98 98.6 06/08/18 11:34 98.2 Intake and Output 06/08/18 06/09/18 19:00 07:00 Intake Total 1580 ml 1900 ml Balance 1580 ml 1900 ml Intake Oral 480 ml 800 ml IV Total 1100 ml 1100 ml # Voids 4 2 # Bowel Movements 1 2 Height (Feet): 5 Height (Inches): 4.00 Weight (Pounds): 120 General Appearance: no apparent distress, alert, thin EENT: PERRL/EOMI, normal ENT inspection, TMs normal, pale conjunctivae Neck: non-tender, supple Cardiovascular: normal peripheral pulses, regular rhythm, regularly irregular Respiratory/Chest: lungs clear, normal breath sounds Abdomen: hypoactive bowel sounds, distended, tender Pelvis: normal external exam Extremities: normal range of motion Edema: no edema noted Arm (L), no edema noted Arm (R) Neurologic: alert, oriented x 3 Skin: normal pigmentation, warm/dry Lymphatic: normal anterior cervical (L), normal anterior cervical (R) Maxime Reid MD Jun 09, 2018 11:26
--- NOTE | 2018-06-09 12:05 | General Surgery Progress Note ---
General Surgery-Progress Note Subjective Additional Comments no acute events. fortunately seems enema's working as she has had multiple bm' s since. started on clears yesterday and tolerating. pain improved. no n/v/f/ c. labs okay Objective Last 24 Hour Vital Signs Date Time Temp Pulse Resp B/P (MAP) Pulse Ox O2 Delivery O2 Flow Rate FiO2 06/09/18 09:00 Room Air 06/09/18 08:34 98.5 82 18 115/82 (93) 98 98.5 06/09/18 04:00 97.5 80 17 132/82 (99) 97 97.5 06/09/18 00:00 99.1 84 18 130/89 (103) 98 99.1 06/08/18 21:00 Room Air 06/08/18 20:00 98.4 78 19 119/68 (85) 98 98.4 06/08/18 16:00 97.0 64 18 120/82 (95) 99 97.0 I&O Intake and Output 06/08/18 06/09/18 19:00 07:00 Intake Total 1580 ml 1900 ml Balance 1580 ml 1900 ml Intake Oral 480 ml 800 ml IV Total 1100 ml 1100 ml # Voids 4 2 # Bowel Movements 1 2 Drains: none Cardiovascular: RSR Respiratory: clear Abdomen: soft, distended, tenderness, present bowel sounds Extremities: no cyanosis Plan Problems: (1) Large bowel obstruction Assessment & Plan: 42 year old female with large bowel obstruction. etiology unknown. has been obstructed for 14+ days likely. CT with significant stool throughout colon. exam with distention and palpable enlarged stool filled colon. CT demonstrates area of possible sigmoid structure vs mass? 1. Large amount of stool throughout the colon. This appears most prominent in the ascending and transverse colon. 2. A focal area of narrowing is seen in the region of the sigmoid colon in the left lower quadrant (image 65 of series 3). This may be related to a focal area of spasm. A stricture or neoplastic process cannot entirely be excluded. Consider barium enema exam or colonoscopy for further evaluation. -clears; bowel prep -npo p mn -colonoscopy possibly tomorrow -IV fluids -thank you for this consultation. will follow with recs. Alec Crowe Jun 09, 2018 12:05
--- NOTE | 2018-06-09 13:07 | GI Initial Consult Note ---
History of Present Illness General Date patient seen: Jun 09, 2018 Time patient seen: 14:17 Reason for Hospitalization: Abdominal Pain Referring physician: EDDIE SALDAÑA Reason for Consultation: Large Bowel Obstruction Present Illness HPI 42 year old female with past medical history of anxiety, depression, bulimia presented to ED with complaints of abdominal pain. Patient states that she was well approximately 1 month ago but since has been developing worsening abdominal discomfort. She went to an urgent care facility this evening and after work up was told to come to ED for further evaluation. She was noted to have a distended abdomen with significant tenderness on palpation. In ED she had a CT scan which demonstrated significant stool retention in entire colon and possible stricture in sigmoid colon. She was admitted for care and management. Surgery called to evaluate for possible large bowel obstruction. Patient seen, chart reviewed, patient examined. States that she has been passing flatus even today but has not had a BM in 14 days. she is usually regular with daily BM's except for the past two weeks. denies nausea or emesis. no fever or chills. labs demonstrate elevated lipase. no prior episodes. history of two prior c sections. GI consulted for noted colonic stricture as seen on recent CT. Pt seen, awake A &Ox4 NAD with no active s/sx of N/V/D. Denies any abdominal pain at this time, stated she had no BM x 14 days and she had severe abdominal distention. Labs reviewed show no leukocytosis, no anemia. Denies any current ETOH, IVDA, or tobacco use. No known history of endoscopy / colonoscopy. Home Meds Reported Medications Bupropion Hcl* (WELLBUTRIN XL*) 150 Mg Tab.er.24h, 150 MG ORAL DAILY for 30 Days , TAB 0 Refills 06/06/18 Hydroxyzine Pamoate* (VISTARIL*) 50 Mg Capsule, 25 MG ORAL DAILY, #20 TAB 0 Refills 06/06/18 Trazodone Hcl* (DESYREL*) 50 Mg Tablet, 50 MG ORAL BEDTIME, TAB 06/06/18 Gabapentin* (GABAPENTIN*) 400 Mg Capsule, 400 MG ORAL EVERY 6 HOURS, CAP 0 Refills 06/06/18 Diclofenac Sod* (VOLTAREN*) 75 Mg Tablet.dr, 75 MG ORAL BID, TAB 06/06/18 Duloxetine Hcl* (CYMBALTA*) 60 Mg Capsule., 60 MG ORAL DAILY, CAP 06/06/18 Med list reviewed/reconciled: Yes Allergies: Coded Allergies: No Known Allergies (Unverified , 06/06/18) Patient History PMH Narrative PMHx: As per HPI Anxiety, depression, Bulimia FHx: Reviewed; not pertinent for this encounter SHx; No tobacco; + EtOH +meth in past Review of Systems All Other Systems: negative except mentioned in HPI Physical Exam Vital Signs Date Time Temp Pulse Resp B/P (MAP) Pulse Ox O2 Delivery O2 Flow Rate FiO2 06/06/18 17:21 97.8 66 16 112/80 99 Room Air 97.9 Sp02 EP Interpretation: reviewed, normal General Appearance: well appearing, no apparent distress, alert Head: normocephalic EENT: PERRL/EOMI, normal ENT inspection Neck: supple Respiratory: normal breath sounds, no respiratory distress Cardiovascular: normal rate Gastrointestinal: normal inspection, non tender, soft, normal bowel sounds, non -distended Rectal: deferred Genitourinary: no CVA tenderness Musculoskeletal: normal inspection, back normal Neurologic: normal inspection, alert, oriented x3, responsive Psychiatric: normal inspection, judgement/insight normal, memory normal Skin: normal inspection, normal color, no rash, warm/dry, palpation normal, well hydrated Lymphatic: normal inspection, no adenopathy Current Medications Current Medications Medications (Trade) Dose Ordered Sig/Devora Route PRN Reason Start Time Stop Time Status Last Admin Dose Admin Acetaminophen (Tylenol) 650 mg Q4H PRN RECTAL Mild Pain (Pain Scale 1-3) 06/06/18 23:00 07/06/18 22:59 06/07/18 12:36 Acetaminophen (Tylenol) 650 mg Q6H PRN ORAL Mild Pain/Temp > 100.5 06/06/18 23:00 07/06/18 22:59 06/08/18 11:34 Bisacodyl (Dulcolax) 10 mg HSPRN PRN RECTAL Constipation 06/06/18 23:00 07/06/18 22:59 06/08/18 01:06 Bupropion HCl (Wellbutrin XL) 150 mg DAILY ORAL 06/07/18 09:00 07/07/18 08:59 06/09/18 09:01 Dextrose (Dextrose 50%) 25 ml STAT PRN IV Hypoglycemia 06/06/18 23:00 10/7/18 22:59 Dextrose (Dextrose 50%) 50 ml STAT PRN IV Hypoglycemia 06/06/18 23:00 07/06/18 22:59 Dextrose/ Electrolytes 1,000 ml @ 100 mls/hr Q10H IV 06/06/18 23:58 07/06/18 23:57 06/09/18 06:01 Diphenhydramine HCl (Benadryl) 25 mg HSPRN PRN ORAL Insomnia 06/06/18 23:00 07/06/18 22:59 06/09/18 00:18 Diphenhydramine HCl (Benadryl) 50 mg Q6H PRN IVP Insomnia/ rash 06/06/18 23:15 07/06/18 23:14 06/06/18 23:56 Duloxetine HCl (Cymbalta) 60 mg DAILY ORAL 06/07/18 09:00 07/07/18 08:59 06/09/18 08:59 Famotidine (Pepcid I.v.) 20 mg Q12HR IVP 06/07/18 09:00 07/07/18 08:59 06/09/18 09:01 Gabapentin (Neurontin) 400 mg EVERY 6 HOURS ORAL 06/07/18 00:00 07/07/18 00:00 06/09/18 12:43 Hydroxyzine HCl (Atarax) 25 mg DAILY ORAL 06/07/18 09:00 07/07/18 08:59 06/09/18 09:00 Lorazepam (Ativan 2mg/ml 1ml) 0.5 mg Q4H PRN IV For Anxiety 06/06/18 23:00 06/13/18 22:59 Morphine Sulfate (Morphine Sulfate) 1 mg EVERY 4 HOURS PRN IVP For Pain 06/06/18 23:00 06/13/18 22:59 Morphine Sulfate (Morphine Sulfate) 2 mg Q4H PRN IVP For Pain 06/06/18 23:00 06/13/18 22:59 06/07/18 17:48 Ondansetron HCl (Zofran) 4 mg Q6H PRN IVP Nausea & Vomiting 06/06/18 23:00 07/06/18 22:59 Trazodone HCl (Desyrel) 50 mg BEDTIME ORAL 06/07/18 21:00 07/07/18 20:59 06/08/18 20:42 GI: Plan Problems: (1) Colonic stricture (2) Large bowel obstruction Plan colonoscopy scheduled tomorrow to evaluate sigmoid stricture. - CLD today, NPO @ Ia. - hold all blood thinners tonight mineral oil x1 ppi fu labs will follow with additional recs post procedure Discussed with Dr. Davidson. Thank you for this patient referral, we will follow. The patient was seen and examined at bedside and all new and available data was reviewed in the patients chart. I agree with the above findings, impression and plan. (Patient seen earlier today. Signature stamp does not reflect patient encounter time.). - MD Benita Honeycutt Anh-Kamaljit BUCKLE SORTER Jun 09, 2018 13:07
[2018-06-09] MEDS ORDERED: Mineral Oil 30ml ud ORAL ONE (15:00)
[2018-06-09 16:00] VITALS: BP 138/61
[2018-06-09] MEDS ORDERED: Bisacodyl EC 5mg tab ORAL SCH (16:00)
[2018-06-09] MEDS ORDERED: Nulytely 4L ORAL SCH (16:00)
[2018-06-09 20:22] VITALS: BP 117/82
[2018-06-09] MEDS: TraZODone 50mg tab ORAL SCH (21:28)
[2018-06-09] MEDS ORDERED: Fleet's Enema 133ml RECTAL ONE (23:00)
[2018-06-10] VITALS (12 sets, daily range): BP systolic 90–151; BP diastolic 51–90
[2018-06-10] MEDS: D5 1/2NS w/KCl 20mEq 1,000 ML IV SCH ×2 (04:03→15:57)
[2018-06-10 07:09] LABS: EOSINOPHILS % (AUTO) 2.4 % (0.0-3.0); HEMATOCRIT 37.4 % (37.0-47.0); HEMOGLOBIN 13.2 G/DL (12.0-16.0); LYMPHOCYTES % (AUTO) 28.7 % (20.0-45.0); MEAN CORPUSCULAR VOLUME 90 FL (80-99); MONOCYTES % (AUTO) 13.5 % (1.0-10.0); NEUTROPHILS % (AUTO) 54.4 % (45.0-75.0); PLATELET COUNT 166 K/UL (150-450); RED BLOOD COUNT 4.16 M/UL (4.20-5.40); RED CELL DISTRIBUTION WIDTH 10.4 % (11.6-14.8); WHITE BLOOD COUNT 3.5 K/UL (4.8-10.8)
[2018-06-10 07:42] LABS: ANION GAP 5 mmol/L (5-15); BLOOD UREA NITROGEN 1 mg/dL (7-18); CALCIUM 8.7 MG/DL (8.5-10.1); CARBON DIOXIDE 27 MMOL/L (21-32); CHLORIDE 108 MMOL/L (98-107); CREATININE 0.7 MG/DL (0.55-1.30); POTASSIUM 3.7 MMOL/L (3.5-5.1); SODIUM 140 MMOL/L (136-145)
[2018-06-10] MEDS: DULoxetine 30mg cap ORAL SCH (09:00)
[2018-06-10] MEDS: BuPROPion XL 150mg tab ORAL SCH (09:00)
[2018-06-10] MEDS: HydrOXYzine 50mg tab ORAL SCH (09:00)
[2018-06-10] MEDS ORDERED: Lidocaine 1% MPF 10mg/ml 5ml ONE (11:30)
[2018-06-10] MEDS ORDERED: LR 1000ml ONE (11:30)
[2018-06-10] MEDS ORDERED: Propofol 200mg/20ml IV ONE (11:30)
[2018-06-10] MEDS ORDERED: LR 1000ml 1,000 ML IVLG SCH (11:43)
[2018-06-10] MEDS ORDERED: Ketorolac 30mg Inj IV PRN ×2 (11:45)
[2018-06-10] MEDS ORDERED: LORazepam Inj 2mg/ml 1ml IV PRN (11:45)
[2018-06-10] MEDS ORDERED: Norco 5mg/325mg tab ORAL PRN (11:45)
[2018-06-10] MEDS ORDERED: fentaNYL 100 mcg/2 mL IV PRN (11:45)
[2018-06-10] MEDS ORDERED: NS 500ML IVPB ONE (11:45)
[2018-06-10] MEDS ORDERED: oxyCODONE HCL/Acetaminophen 5/325mg ORAL PRN (11:45)
[2018-06-10] MEDS ORDERED: Atropine Sulfate 0.4mg/ml inj IVP PRN (11:45)
[2018-06-10] MEDS ORDERED: Hydromorphone 0.5mg/0.5ml inj IVP PRN (11:45)
[2018-06-10] MEDS ORDERED: Midazolam 2mg/2ml Inj IVP PRN (11:45)
[2018-06-10] MEDS ORDERED: HYDROcodone/Acetamin 7.5/325 tab ORAL PRN (11:45)
[2018-06-10] MEDS ORDERED: Labetalol 5mg/ml 20ml vial IV PRN (11:45)
[2018-06-10] MEDS ORDERED: DiphenhydrAMINE 50mg/ml Inj IVP PRN (11:45)
--- NOTE | 2018-06-10 11:47 | Pre-Procedure Note/Attestation ---
Pre-Procedure Note/Attestation Complete Prior to Procedure Planned Procedure: not applicable Procedure Narrative: colonoscopy Indications for Procedure Pre-Operative Diagnosis: stricture Attestation I attest that I discussed the nature of the procedure; its benefits; risks and complications; and alternatives (and the risks and benefits of such alternatives ), prior to the procedure, with the patient (or the patient's legal appeals representative). I attest that, if there was a reasonable possibility of needing a blood transfusion, the patient (or the patient's legal appeals representative) was given the [facility] standardized written summary, pursuant to the João Steen Blood Safety Act ([place] Health and Safety Code # 1645, as amended). I attest that I re-evaluated the patient just prior to the surgery and that there has been no change in the patient's H&P, except as documented below: Ciro Davidson MD Jun 10, 2018 11:47
--- NOTE | 2018-06-10 11:58 | Anethesia Preoperative Eval ---
Anesthesia Pre-op PMH/ROS General Date of Evaluation: Jun 10, 2018 Time of Evaluation: 11:24 ASA Score: ASA 3 Mallampati Score Class I : Soft palate, uvula, fauces, pillars visible Class II: Soft palate, uvula, fauces visible Class III: Soft palate, base of uvula visible Class IV: Only hard plate visible Mallampati Classification: Class II Surgeon: Lety Diagnosis: Abd Pain Surgical Procedure: Colonoscopy Anesthesia History: none Family History: no anesthesia problems Allergies: Coded Allergies: No Known Allergies (Unverified , 06/06/18) Medications: see eMAR Past Medical History Gastrointestinal/Genitourinary: Reports: other - Hep C Neurologic/Psychiatric: Reports: depression/anxiety Hematology/Immune: Reports: anemia Anesthesia Pre-op Phys. Exam Physician Exam Last Vital Signs Date Time Temp Pulse Resp B/P (MAP) Pulse Ox O2 Delivery O2 Flow Rate FiO2 06/10/18 09:00 Room Air 06/10/18 07:00 98.2 77 125/77 (93) 98.2 06/10/18 04:46 19 96 Constitutional: NAD Neurologic: CN 2-12 intact Cardiovascular: RRR Respiratory: CTA Gastrointestinal: S/NT/ND Airway Exam Mallampati Score: Class II MO: full ROM: full Teeth: intact Anesthesia Pre-op A/P Labs Hematology Test 06/10/18 05:40 White Blood Count 3.5 K/UL (4.8-10.8) L Red Blood Count 4.16 M/UL (4.20-5.40) L Hemoglobin 13.2 G/DL (12.0-16.0) Hematocrit 37.4 % (37.0-47.0) Mean Corpuscular Volume 90 FL (80-99) Mean Corpuscular Hemoglobin 31.8 PG (27.0-31.0) H Mean Corpuscular Hemoglobin Concent 35.3 G/DL (32.0-36.0) Red Cell Distribution Width 10.4 % (11.6-14.8) L Platelet Count 166 K/UL (150-450) Mean Platelet Volume 5.0 FL (6.5-10.1) L Neutrophils (%) (Auto) 54.4 % (45.0-75.0) Lymphocytes (%) (Auto) 28.7 % (20.0-45.0) Monocytes (%) (Auto) 13.5 % (1.0-10.0) H Eosinophils (%) (Auto) 2.4 % (0.0-3.0) Basophils (%) (Auto) 1.0 % (0.0-2.0) Coagulation Test 06/10/18 05:40 Prothrombin Time 10.6 SEC (9.30-11.50) Prothromb Time International Ratio 1.0 (0.9-1.1) Activated Partial Thromboplast Time 28 SEC (23-33) Chemistry Test 06/10/18 05:40 Sodium Level 140 MMOL/L (136-145) Potassium Level 3.7 MMOL/L (3.5-5.1) Chloride Level 108 MMOL/L (98-107) H Carbon Dioxide Level 27 MMOL/L (21-32) Anion Gap 5 mmol/L (5-15) Blood Urea Nitrogen 1 mg/dL (7-18) L Creatinine 0.7 MG/DL (0.55-1.30) Estimat Glomerular Filtration Rate > 60 mL/min (>60) Glucose Level 92 MG/DL (74-106) Calcium Level 8.7 MG/DL (8.5-10.1) Risk Assessment & Plan Assessment: ASA 3 Plan: GA Status Change Before Surgery: Mason Cruz MD Jun 10, 2018 11:58
--- NOTE | 2018-06-10 12:01 | Immediate Post-Op Evaluation ---
Immediate Post-Op Evalulation Immediate Post-Op Evalulation Procedure: Colonoscopy Date of Evaluation: Jun 10, 2018 Time of Evaluation: 12:25 IV Fluids: 500 LR Blood Products: 0 Estimated Blood Loss: 1 Urinary Output: 0 Blood Pressure Systolic: 115 Blood Pressure Diastolic: 78 Pulse Rate: 68 Respiratory Rate: 16 O2 Sat by Pulse Oximetry: 98 Temperature (Fahrenheit): 98.1 Pain Score (1-10): 2 Nausea: No Vomiting: No Complications 0 Patient Status: awake, reacts, patent, none Hydration Status: adequate Mason Oliveira MD Jun 10, 2018 12:00
--- NOTE | 2018-06-10 12:04 | 48 Hour Post Anesthesia Eval ---
Post Anesthesia Evaluation Procedure: Colonoscopy Date of Evaluation: Jun 10, 2018 Time of Evaluation: 14:34 Blood Pressure Systolic: 114 0: 76 Pulse Rate: 64 Respiratory Rate: 18 Temperature (Fahrenheit): 98.4 O2 Sat by Pulse Oximetry: 98 Airway: patent Nausea: No Vomiting: No Pain Intensity: 2 Hydration Status: adequate Cardiopulmonary Status: Stable Mental Status/LOC: patient returned to baseline Follow-up Care/Observations: 0 Post-Anesthesia Complications: 0 Follow-up care needed: ready to discharge Mason Oliveira MD Jun 10, 2018 12:04
--- NOTE | 2018-06-10 12:06 | Endoscopy Procedure Note ---
Endoscopy Procedure Note General Indication for Procedure: colonic stricture Procedures Performed: colonoscopy Operative Findings/Diagnosis: same Specimen: yes Pt Tolerated Procedure Well: Yes Estimated Blood Loss: none Anesthesia Anesthesiologist: veena Anesthesia: MAC Inserted Devices Implant(s) used?: No Quality Quality of Bowel Preparation: Good Did scope reach the cecum?: Yes Was there any complications?: No GI Core Measures 50 yrs or older w/o bx or poly: Not Applicable 10yrs. F/U not recommended: Not Applicable Ciro Davidson MD Jun 10, 2018 12:06
--- NOTE | 2018-06-10 12:34 | General Progress Note ---
Assessment/Plan Status: stable Assessment/Plan A/P Large bowel obstruction, sigmoid stricture, symptomatically improved. Plan for colonoscopy today, further surgical workup depends on endoscopic findings, spoke with Elevated lipase, possible mild pancreatitis, continue NPO, IV fluids Depression/anxiety, continue psychotropics DVT Prophylaxis: Venodynes Subjective Date patient seen: Jun 10, 2018 Time patient seen: 12:27 ROS Limited/Unobtainable: No Constitutional: Reports: no symptoms HEENT: Reports: no symptoms Cardiovascular: Denies: chest pain, palpitations Respiratory: Denies: cough, shortness of breath Gastrointestinal/Abdominal: Reports: abdomen distended; Denies: abdominal pain , nausea, vomiting Genitourinary: Denies: burning, discharge Neurologic/Psychiatric: Denies: anxiety, depressed Endocrine: Denies: excessive sweating Hematologic/Lymphatic: Denies: easy bruising Allergies: Coded Allergies: No Known Allergies (Unverified , 06/06/18) Subjective Medical followup for large bowel obstruction, abdominal pain and distension are improved from admission. Tolerated bowel prep for colonoscopy Objective Last 24 Hour Vital Signs Date Time Temp Pulse Resp B/P (MAP) Pulse Ox O2 Delivery O2 Flow Rate FiO2 06/10/18 12:19 68 16 115/78 98 Simple Mask 8 06/10/18 12:18 209.1 64 18 98 06/10/18 12:14 98.1 69 16 151/78 98 Simple Mask 8 98.1 06/10/18 09:00 Room Air 06/10/18 07:00 98.2 77 125/77 (93) 98.2 06/10/18 04:46 98.4 66 19 90/51 (64) 96 98.4 06/10/18 00:00 98.2 77 20 122/78 (93) 97 98.2 06/09/18 21:00 Room Air 06/09/18 20:22 98.3 69 18 117/82 (94) 97 98.3 06/09/18 16:00 98.0 87 20 138/61 (86) 100 98.0 Intake and Output 06/09/18 06/10/18 19:00 07:00 Intake Total 1900 ml 4490 ml Output Total 2 ml 6 ml Balance 1898 ml 4484 ml Intake Oral 1000 ml 3390 ml IV Total 900 ml 1100 ml Output Urine Total 2 ml 1 ml Stool Total 0 ml 5 ml # Voids 7 17 # Bowel Movements 1 14 Laboratory Tests 06/10/18 05:40: White Blood Count 3.5L, Red Blood Count 4.16L, Hemoglobin 13.2, Hematocrit 37.4 , Mean Corpuscular Volume 90, Mean Corpuscular Hemoglobin 31.8H, Mean Corpuscular Hemoglobin Concent 35.3, Red Cell Distribution Width 10.4L, Platelet Count 166, Mean Platelet Volume 5.0L, Neutrophils (%) (Auto) 54.4, Lymphocytes (%) (Auto) 28.7, Monocytes (%) (Auto) 13.5H, Eosinophils (%) (Auto) 2.4, Basophils (%) (Auto) 1.0, Prothrombin Time 10.6, Prothromb Time International Ratio 1.0, Activated Partial Thromboplast Time 28, Sodium Level 140, Potassium Level 3.7, Chloride Level 108H, Carbon Dioxide Level 27, Anion Gap 5, Blood Urea Nitrogen 1L, Creatinine 0.7, Estimat Glomerular Filtration Rate > 60, Glucose Level 92, Calcium Level 8.7 Height (Feet): 5 Height (Inches): 4.00 Weight (Pounds): 120 General Appearance: no apparent distress, alert Cardiovascular: normal rate, regular rhythm, no gallop/murmur Respiratory/Chest: lungs clear, no accessory muscle use Abdomen: non tender, soft Extremities: non-tender Edema: no edema noted Leg (L), no edema noted Leg (R) Neurologic: no motor/sensory deficits Skin: normal pigmentation Salvatore De Luna MD Jun 10, 2018 12:34
--- NOTE | 2018-06-10 16:30 | Procedure Note ---
DATE OF PROCEDURE: 06/10/2018 SURGEON: Ciro Davidson M.D. ANESTHESIA: Per Dr. Garcia. PROCEDURE: Colonoscopy with biopsy. INSTRUMENT: Olympus adult flexible colonoscope. INDICATION: Colonic stricture. REASON FOR PROCEDURE: The procedure, risks, benefits, and possible consequences, including hemorrhage, aspiration, perforation and infection, and alternative treatments, were explained to the patient/legal guardian by Dr. Ciro Davidson and the patient/legal guardian understood and accepted these risks. DESCRIPTION OF PROCEDURE: After informed consent was obtained and the patient was adequately sedated, first rectal exam was performed, which was normal. Then, the scope was advanced from the rectum into the cecum documented by the appendiceal orifice, ileocecal valve, and right upper quadrant palpation. Quality of good. The patient had bowel edema with some associated luminal narrowing at about 35 cm from anal verge without any obvious mass or severe stricture. Scope was easily passed through. Again, no obvious mass, no ulcerations just basically bowel edema in that area. Biopsy from this area was obtained. The rest of the exam grossly within normal limits. Retroflexion of rectum showed evidence of internal hemorrhoids. FINDINGS: 1. The area 35 cm from the anal verge, there was evidence of bowel edema and associated luminal narrowing without any obvious ulcerations or mass status post biopsy. 2. Internal hemorrhoids. RECOMMENDATIONS: Follow up biopsy results and treat accordingly. Ciro Davidson M.D. DR: Ioana JOB#: [id number] CC:
[2018-06-10] MEDS: TraZODone 50mg tab ORAL SCH (21:46)
--- NOTE | 2018-06-10 22:45 | Consultation ---
DATE OF CONSULTATION: 06/10/2018 HEMATOLOGY/ONCOLOGY CONSULTATION CONSULTING PHYSICIAN: Ryan Banks M.D. REQUESTING PHYSICIAN: Armando Carlin M.D. REASON FOR CONSULTATION: Evaluation of leukopenia. IDENTIFICATION DATA: Dear Dr. Carlin and Dr. Maxime Reid, HISTORY OF PRESENT ILLNESS: The patient is a pleasant 42-year-old female with history of abdominal pain, large bowel obstruction on CAT scan. Surgery has been consulted, left-sided quadrant pain. Nausea and vomiting was noted initially on presentation. Noted to have leukopenia and again has been seen by Surgical Service, Dr. Crowe, having multiple bowel movements. No fevers or chills at this time. Lungs are okay. The patient to be NPO after midnight, potentially colonoscopy tomorrow morning. Hematology Service was consulted for further evaluation and treatment given leukopenia. PAST MEDICAL HISTORY: Depression, . FAMILY HISTORY: Noncontributory SOCIAL HISTORY: The patient does have alcohol and methamphetamine use before. ALLERGIES: No known drug allergies. REVIEW OF SYSTEMS: CONSTITUTIONAL: No fever, chills, or night sweats. SKIN: No rashes, bumps, or itching. HEENT: No headache, hearing or visual changes. BREASTS: No lumps, pain, or discharge. PULMONARY: No cough, sputum, or shortness of breath. GASTROINTESTINAL: No nausea, vomiting, or diarrhea. GENITOURINARY: No dysuria, frequency, or urgency. MUSCULOSKELETAL: No joint swelling, muscle pain, or trauma. PHYSICAL EXAMINATION: VITAL SIGNS: Reviewed. GENERAL: No acute distress. PULMONARY: Decreased breath sounds. Some crackles noted. CARDIOVASCULAR: Regular rate. No S3 or S4. ABDOMEN: Soft, nontender, and nondistended. EXTREMITIES: A 1+ edema. LABORATORY AND DIAGNOSTIC DATA: WBC 3.5. Hepatitis panel and HIV pending. INR of 1. BUN of 1 and current 0.7. ASSESSMENT AND RECOMMENDATIONS: 1. Leukopenia, potentially secondary to infection versus hepatitis and HIV infection. Further evaluate with primary team. Results are pending. No evidence of infection at this time. 2. Colonic mass, questionable mass versus stricture. Evaluate further with colonoscopy tomorrow morning and Surgery to follow as well as GI. 3. Relative thrombocytopenia, current platelet count 166, dropped recently. 4. Elevated lipase. Further management with GI Service. 5. Nausea and vomiting, likely secondary to stricture. I appreciate the consultation. Ryan Banks M.D. DR: Macario JOB#: [id number] CC:
--- NOTE | 2018-06-10 22:55 | General Surgery Progress Note ---
General Surgery-Progress Note Subjective Additional Comments late entry: patient underwent colonoscopy today. noted to have colonic narrowing at 35cm without obvious etiology. biopsy taken. Objective Last 24 Hour Vital Signs Date Time Temp Pulse Resp B/P (MAP) Pulse Ox O2 Delivery O2 Flow Rate FiO2 06/10/18 21:13 99.2 111 20 109/66 (80) 99.2 06/10/18 20:00 98.0 90 18 140/75 (96) 98 98.0 06/10/18 16:00 98.8 77 18 132/90 (104) 97 98.8 06/10/18 13:30 98.0 63 18 123/82 (96) 100 98.0 06/10/18 13:03 98.0 59 18 119/82 (94) 100 98.0 06/10/18 12:40 98.2 65 16 117/85 96 Room Air 98.2 06/10/18 12:30 62 16 117/83 98 Simple Mask 8 06/10/18 12:19 68 16 115/78 98 Simple Mask 8 06/10/18 12:18 209.1 64 18 98 06/10/18 12:14 98.1 69 16 151/78 98 Simple Mask 8 98.1 06/10/18 09:00 Room Air 06/10/18 07:00 98.2 77 125/77 (93) 98.2 06/10/18 04:46 98.4 66 19 90/51 (64) 96 98.4 06/10/18 00:00 98.2 77 20 122/78 (93) 97 98.2 I&O Intake and Output 06/09/18 06/10/18 19:00 07:00 Intake Total 1900 ml 4490 ml Output Total 2 ml 6 ml Balance 1898 ml 4484 ml Intake Oral 1000 ml 3390 ml IV Total 900 ml 1100 ml Output Urine Total 2 ml 1 ml Stool Total 0 ml 5 ml # Voids 7 17 # Bowel Movements 1 14 Laboratory Tests Test 06/10/18 05:40 White Blood Count 3.5 K/UL (4.8-10.8) L Red Blood Count 4.16 M/UL (4.20-5.40) L Hemoglobin 13.2 G/DL (12.0-16.0) Hematocrit 37.4 % (37.0-47.0) Mean Corpuscular Volume 90 FL (80-99) Mean Corpuscular Hemoglobin 31.8 PG (27.0-31.0) H Mean Corpuscular Hemoglobin Concent 35.3 G/DL (32.0-36.0) Red Cell Distribution Width 10.4 % (11.6-14.8) L Platelet Count 166 K/UL (150-450) Mean Platelet Volume 5.0 FL (6.5-10.1) L Neutrophils (%) (Auto) 54.4 % (45.0-75.0) Lymphocytes (%) (Auto) 28.7 % (20.0-45.0) Monocytes (%) (Auto) 13.5 % (1.0-10.0) H Eosinophils (%) (Auto) 2.4 % (0.0-3.0) Basophils (%) (Auto) 1.0 % (0.0-2.0) Prothrombin Time 10.6 SEC (9.30-11.50) Prothromb Time International Ratio 1.0 (0.9-1.1) Activated Partial Thromboplast Time 28 SEC (23-33) Sodium Level 140 MMOL/L (136-145) Potassium Level 3.7 MMOL/L (3.5-5.1) Chloride Level 108 MMOL/L (98-107) H Carbon Dioxide Level 27 MMOL/L (21-32) Anion Gap 5 mmol/L (5-15) Blood Urea Nitrogen 1 mg/dL (7-18) L Creatinine 0.7 MG/DL (0.55-1.30) Estimat Glomerular Filtration Rate > 60 mL/min (>60) Glucose Level 92 MG/DL (74-106) Calcium Level 8.7 MG/DL (8.5-10.1) Hepatitis A IgM Antibody Pending Hepatitis B Surface Antigen Pending Hepatitis B Core IgM Antibody Pending Hepatitis C Antibody Pending HIV (1&2) Antibody Rapid Negative (NEGATIVE) Plan Problems: (1) Large bowel obstruction Assessment & Plan: 42 year old female with large bowel obstruction. etiology unknown. has been obstructed for 14+ days likely. CT with significant stool throughout colon. exam with distention and palpable enlarged stool filled colon. CT demonstrates area of possible sigmoid structure vs mass? 1. Large amount of stool throughout the colon. This appears most prominent in the ascending and transverse colon. 2. A focal area of narrowing is seen in the region of the sigmoid colon in the left lower quadrant (image 65 of series 3). This may be related to a focal area of spasm. A stricture or neoplastic process cannot entirely be excluded. Consider barium enema exam or colonoscopy for further evaluation. s/p colonoscopy - narrowing. biopsy taken -okay for diet -f/u biopsy results -thank you for this consultation. will follow with recs. Alec Crowe Jun 10, 2018 22:55
[2018-06-11] VITALS: BP 98/67
[2018-06-11] MEDS: D5 1/2NS w/KCl 20mEq 1,000 ML IV SCH ×2 (03:34→14:50)
[2018-06-11 04:00] VITALS: BP 97/67
[2018-06-11 08:00] VITALS: BP 101/70
[2018-06-11] MEDS: DULoxetine 30mg cap ORAL SCH (08:20)
[2018-06-11] MEDS: BuPROPion XL 150mg tab ORAL SCH (08:20)
[2018-06-11] MEDS: HydrOXYzine 50mg tab ORAL SCH (08:20)
[2018-06-11 10:39] LABS: BASOPHILS % (AUTO) 0.5 % (0.0-2.0); EOSINOPHILS % (AUTO) 1.5 % (0.0-3.0); HEMOGLOBIN 14.9 G/DL (12.0-16.0); LYMPHOCYTES % (AUTO) 14.6 % (20.0-45.0); MEAN CORPUSCULAR VOLUME 91 FL (80-99); MONOCYTES % (AUTO) 5.9 % (1.0-10.0); NEUTROPHILS % (AUTO) 77.5 % (45.0-75.0); PLATELET COUNT 203 K/UL (150-450); RED BLOOD COUNT 4.72 M/UL (4.20-5.40); RED CELL DISTRIBUTION WIDTH 10.4 % (11.6-14.8); WHITE BLOOD COUNT 6.4 K/UL (4.8-10.8)
[2018-06-11 11:09] LABS: ANION GAP 8 mmol/L (5-15); BLOOD UREA NITROGEN 7 mg/dL (7-18); CALCIUM 9.1 MG/DL (8.5-10.1); CARBON DIOXIDE 28 MMOL/L (21-32); CHLORIDE 102 MMOL/L (98-107); CREATININE 0.9 MG/DL (0.55-1.30); POTASSIUM 4.3 MMOL/L (3.5-5.1); SODIUM 138 MMOL/L (136-145)
--- NOTE | 2018-06-11 11:46 | GI Progress Note ---
Assessment/Plan Problems: (1) Colonic stricture ICD Codes: K56.699 - Other intestinal obstruction unspecified as to partial versus complete obstruction SNOMED: 1329520 (2) Large bowel obstruction ICD Codes: K56.609 - Unspecified intestinal obstruction, unspecified as to partial versus complete obstruction SNOMED: 141807822 Status: stable Status Narrative Discussed with Dr. Davidson. Assessment/Plan Hep C positive s/p colonoscopy FINDINGS: 1. The area 35 cm from the anal verge, there was evidence of bowel edema and associated luminal narrowing without any obvious ulcerations or mass status post biopsy. 2. Internal hemorrhoids. RECOMMENDATIONS: follow up surgical recommendations Follow up biopsy results and treat accordingly. outpatient Hep C treatment fu labs The patient was seen and examined at bedside and all new and available data was reviewed in the patients chart. I agree with the above findings, impression and plan. (Patient seen earlier today. Signature stamp does not reflect patient encounter time.). - Ciro Davidson MD Subjective Gastrointestinal/Abdominal: Reports: no symptoms Objective Last 24 Hour Vital Signs Date Time Temp Pulse Resp B/P (MAP) Pulse Ox O2 Delivery O2 Flow Rate FiO2 06/11/18 08:00 97.3 76 20 101/70 (80) 99 97.3 06/11/18 07:40 Room Air 06/11/18 04:00 97.7 64 18 97/67 (77) 97 97.7 06/11/18 00:00 97.4 74 19 98/67 (77) 97 97.4 06/10/18 21:13 99.2 111 20 109/66 (80) 99.2 06/10/18 21:00 Room Air 06/10/18 20:00 98.0 90 18 140/75 (96) 98 98.0 06/10/18 16:00 98.8 77 18 132/90 (104) 97 98.8 06/10/18 13:30 98.0 63 18 123/82 (96) 100 98.0 06/10/18 13:03 98.0 59 18 119/82 (94) 100 98.0 06/10/18 12:40 98.2 65 16 117/85 96 Room Air 98.2 06/10/18 12:30 62 16 117/83 98 Simple Mask 8 06/10/18 12:19 68 16 115/78 98 Simple Mask 8 06/10/18 12:18 209.1 64 18 98 06/10/18 12:14 98.1 69 16 151/78 98 Simple Mask 8 98.1 Intake and Output 06/10/18 06/11/18 19:00 07:00 Intake Total 2900 ml 1900 ml Output Total 500 ml Balance 2900 ml 1400 ml Intake Oral 1500 ml 800 ml IV Total 1400 ml 1100 ml Hemodialysis UF 500 ml # Voids 11 4 # Bowel Movements 6 Laboratory Tests Test 06/11/18 09:55 White Blood Count 6.4 K/UL (4.8-10.8) # Red Blood Count 4.72 M/UL (4.20-5.40) Hemoglobin 14.9 G/DL (12.0-16.0) Hematocrit 43.0 % (37.0-47.0) Mean Corpuscular Volume 91 FL (80-99) Mean Corpuscular Hemoglobin 31.5 PG (27.0-31.0) H Mean Corpuscular Hemoglobin Concent 34.6 G/DL (32.0-36.0) Red Cell Distribution Width 10.4 % (11.6-14.8) L Platelet Count 203 K/UL (150-450) Mean Platelet Volume 4.9 FL (6.5-10.1) L Neutrophils (%) (Auto) 77.5 % (45.0-75.0) H Lymphocytes (%) (Auto) 14.6 % (20.0-45.0) L Monocytes (%) (Auto) 5.9 % (1.0-10.0) Eosinophils (%) (Auto) 1.5 % (0.0-3.0) Basophils (%) (Auto) 0.5 % (0.0-2.0) Sodium Level 138 MMOL/L (136-145) Potassium Level 4.3 MMOL/L (3.5-5.1) Chloride Level 102 MMOL/L (98-107) Carbon Dioxide Level 28 MMOL/L (21-32) Anion Gap 8 mmol/L (5-15) Blood Urea Nitrogen 7 mg/dL (7-18) Creatinine 0.9 MG/DL (0.55-1.30) Estimat Glomerular Filtration Rate > 60 mL/min (>60) Glucose Level 75 MG/DL (74-106) Calcium Level 9.1 MG/DL (8.5-10.1) Magnesium Level 1.8 MG/DL (1.8-2.4) Height (Feet): 5 Height (Inches): 4.00 Weight (Pounds): 122 General Appearance: WD/WN, no apparent distress, alert Cardiovascular: normal rate Respiratory/Chest: normal breath sounds, no respiratory distress Abdominal Exam: normal bowel sounds, non tender, soft Extremities: normal range of motion, non-tender Nany Joy NP Jun 11, 2018 11:46
[2018-06-11 11:50] VITALS: BP 112/76
--- NOTE | 2018-06-11 15:09 | General Surgery Progress Note ---
General Surgery-Progress Note Subjective Symptoms: improved, pain absent, tolerating diet, passing flatus Additional Comments no acute events. comfortable. Objective Last 24 Hour Vital Signs Date Time Temp Pulse Resp B/P (MAP) Pulse Ox O2 Delivery O2 Flow Rate FiO2 06/11/18 11:50 98.2 76 20 112/76 (88) 99 98.2 06/11/18 08:00 97.3 76 20 101/70 (80) 99 97.3 06/11/18 07:40 Room Air 06/11/18 04:00 97.7 64 18 97/67 (77) 97 97.7 06/11/18 00:00 97.4 74 19 98/67 (77) 97 97.4 06/10/18 21:13 99.2 111 20 109/66 (80) 99.2 06/10/18 21:00 Room Air 06/10/18 20:00 98.0 90 18 140/75 (96) 98 98.0 06/10/18 16:00 98.8 77 18 132/90 (104) 97 98.8 I&O Intake and Output 06/10/18 06/11/18 19:00 07:00 Intake Total 2900 ml 1900 ml Output Total 500 ml Balance 2900 ml 1400 ml Intake Oral 1500 ml 800 ml IV Total 1400 ml 1100 ml Hemodialysis UF 500 ml # Voids 11 4 # Bowel Movements 6 Drains: none Cardiovascular: RSR Respiratory: clear Abdomen: soft, distended, non-tender, present bowel sounds, other - small ventral midline lipoma vs small ventral hernia noted stable Extremities: no edema, no tenderness, no cyanosis Laboratory Tests Test 06/11/18 09:55 White Blood Count 6.4 K/UL (4.8-10.8) # Red Blood Count 4.72 M/UL (4.20-5.40) Hemoglobin 14.9 G/DL (12.0-16.0) Hematocrit 43.0 % (37.0-47.0) Mean Corpuscular Volume 91 FL (80-99) Mean Corpuscular Hemoglobin 31.5 PG (27.0-31.0) H Mean Corpuscular Hemoglobin Concent 34.6 G/DL (32.0-36.0) Red Cell Distribution Width 10.4 % (11.6-14.8) L Platelet Count 203 K/UL (150-450) Mean Platelet Volume 4.9 FL (6.5-10.1) L Neutrophils (%) (Auto) 77.5 % (45.0-75.0) H Lymphocytes (%) (Auto) 14.6 % (20.0-45.0) L Monocytes (%) (Auto) 5.9 % (1.0-10.0) Eosinophils (%) (Auto) 1.5 % (0.0-3.0) Basophils (%) (Auto) 0.5 % (0.0-2.0) Sodium Level 138 MMOL/L (136-145) Potassium Level 4.3 MMOL/L (3.5-5.1) Chloride Level 102 MMOL/L (98-107) Carbon Dioxide Level 28 MMOL/L (21-32) Anion Gap 8 mmol/L (5-15) Blood Urea Nitrogen 7 mg/dL (7-18) Creatinine 0.9 MG/DL (0.55-1.30) Estimat Glomerular Filtration Rate > 60 mL/min (>60) Glucose Level 75 MG/DL (74-106) Calcium Level 9.1 MG/DL (8.5-10.1) Magnesium Level 1.8 MG/DL (1.8-2.4) Plan Problems: (1) Large bowel obstruction Assessment & Plan: 42 year old female with large bowel obstruction. etiology unknown. has been obstructed for 14+ days likely. CT with significant stool throughout colon. exam with distention and palpable enlarged stool filled colon. CT demonstrates area of possible sigmoid structure vs mass? 1. Large amount of stool throughout the colon. This appears most prominent in the ascending and transverse colon. 2. A focal area of narrowing is seen in the region of the sigmoid colon in the left lower quadrant (image 65 of series 3). This may be related to a focal area of spasm. A stricture or neoplastic process cannot entirely be excluded. Consider barium enema exam or colonoscopy for further evaluation. s/p colonoscopy - narrowing. biopsy taken -okay for diet -f/u biopsy results -d/c planning -thank you for this consultation. will follow with recs. Alec Crowe Jun 11, 2018 15:09
--- NOTE | 2018-06-11 15:31 | Diagnostic Imaging Report ---
Indication: Abdominal pain Technique: Supine view of the abdomen Comparison: 06/07/2018 Findings: Bowel gas pattern is unremarkable. Gas is seen within transverse colon which is upper limits of normal caliber but not frankly distended. There is decreased colonic feces. No small bowel distention. Intrauterine device is again demonstrated. No unusual calcification Impression: Essentially unremarkable exam. Decreased colonic stool since prior study of 06/19/2018
[2018-06-11 16:00] VITALS: BP 111/68
--- NOTE | 2018-06-11 16:43 | General Progress Note ---
Assessment/Plan Status: progressing Assessment/Plan A/P Large bowel obstruction, sigmoid stricture, colonoscopy without mass, still with minimal bowel movements. If improving by tomorrow can be discharged home. Will need to follow up biopsy results as outpatient. Elevated lipase, possible mild pancreatitis, resolved. Depression/anxiety, continue psychotropics DVT Prophylaxis: Venodynes Subjective Date patient seen: Jun 11, 2018 Time patient seen: 16:41 Constitutional: Denies: chills, fever Cardiovascular: Denies: chest pain, edema Respiratory: Denies: cough Gastrointestinal/Abdominal: Denies: abdominal pain, nausea Genitourinary: Denies: burning Allergies: Coded Allergies: No Known Allergies (Unverified , 06/06/18) Subjective Medical followup for large bowel obstruction, underwent colonoscopy yesterday and she has tolerated diet. No N/V but still very minimal bowel movements. Objective Last 24 Hour Vital Signs Date Time Temp Pulse Resp B/P (MAP) Pulse Ox O2 Delivery O2 Flow Rate FiO2 06/11/18 16:00 98.0 86 20 111/68 (82) 97 98.0 06/11/18 11:50 98.2 76 20 112/76 (88) 99 98.2 06/11/18 08:00 97.3 76 20 101/70 (80) 99 97.3 06/11/18 07:40 Room Air 06/11/18 04:00 97.7 64 18 97/67 (77) 97 97.7 06/11/18 00:00 97.4 74 19 98/67 (77) 97 97.4 06/10/18 21:13 99.2 111 20 109/66 (80) 99.2 06/10/18 21:00 Room Air 06/10/18 20:00 98.0 90 18 140/75 (96) 98 98.0 Intake and Output 06/10/18 06/11/18 19:00 07:00 Intake Total 2900 ml 1900 ml Output Total 500 ml Balance 2900 ml 1400 ml Intake Oral 1500 ml 800 ml IV Total 1400 ml 1100 ml Hemodialysis UF 500 ml # Voids 11 4 # Bowel Movements 6 Laboratory Tests 06/11/18 09:55: White Blood Count 6.4#, Red Blood Count 4.72, Hemoglobin 14.9, Hematocrit 43.0, Mean Corpuscular Volume 91, Mean Corpuscular Hemoglobin 31.5H, Mean Corpuscular Hemoglobin Concent 34.6, Red Cell Distribution Width 10.4L, Platelet Count 203, Mean Platelet Volume 4.9L, Neutrophils (%) (Auto) 77.5H, Lymphocytes (%) (Auto) 14.6L, Monocytes (%) (Auto) 5.9, Eosinophils (%) (Auto) 1.5, Basophils (%) (Auto ) 0.5, Sodium Level 138, Potassium Level 4.3, Chloride Level 102, Carbon Dioxide Level 28, Anion Gap 8, Blood Urea Nitrogen 7, Creatinine 0.9, Estimat Glomerular Filtration Rate > 60, Glucose Level 75, Calcium Level 9.1, Magnesium Level 1.8 Height (Feet): 5 Height (Inches): 4.00 Weight (Pounds): 122 General Appearance: no apparent distress, alert Cardiovascular: normal rate, regular rhythm Respiratory/Chest: lungs clear, normal breath sounds Abdomen: non tender, soft Neurologic: sales representative printing supplies II-XII grossly normal, no motor/sensory deficits Salvatore De Luna MD Jun 11, 2018 16:43
[2018-06-11] MEDS: Docusate 100mg cap ORAL SCH (17:13)
[2018-06-11] MEDS: Sennosides 8.6mg ORAL PRN (17:14)
[2018-06-11 20:00] VITALS: BP 133/92
[2018-06-11] MEDS: TraZODone 50mg tab ORAL SCH (21:11)
[2018-06-12] VITALS (7 sets, daily range): BP systolic 114–152; BP diastolic 68–87
[2018-06-12] MEDS: D5 1/2NS w/KCl 20mEq 1,000 ML IV SCH ×2 (00:45→11:03)
[2018-06-12 07:21] LABS: EOSINOPHILS % (AUTO) 2.2 % (0.0-3.0); HEMATOCRIT 41.1 % (37.0-47.0); HEMOGLOBIN 14.6 G/DL (12.0-16.0); LYMPHOCYTES % (AUTO) 13.2 % (20.0-45.0); MEAN CORPUSCULAR VOLUME 90 FL (80-99); MONOCYTES % (AUTO) 6.6 % (1.0-10.0); PLATELET COUNT 198 K/UL (150-450); RED BLOOD COUNT 4.57 M/UL (4.20-5.40); RED CELL DISTRIBUTION WIDTH 10.2 % (11.6-14.8); WHITE BLOOD COUNT 4.9 K/UL (4.8-10.8)
[2018-06-12 07:47] LABS: BLOOD UREA NITROGEN 6 mg/dL (7-18); CHLORIDE 104 MMOL/L (98-107); POTASSIUM 3.9 MMOL/L (3.5-5.1); SODIUM 140 MMOL/L (136-145)
[2018-06-12] MEDS: DULoxetine 30mg cap ORAL SCH (08:50)
[2018-06-12] MEDS: BuPROPion XL 150mg tab ORAL SCH (08:50)
[2018-06-12] MEDS: HydrOXYzine 50mg tab ORAL SCH (08:50)
[2018-06-12] MEDS: Docusate 100mg cap ORAL SCH ×3 (08:50→18:00)
[2018-06-12] MEDS: Sennosides 8.6mg ORAL PRN (09:12)
[2018-06-12 10:06] LABS: ANION GAP 10 mmol/L (5-15); CARBON DIOXIDE 26 MMOL/L (21-32)
--- NOTE | 2018-06-12 10:57 | General Progress Note ---
Assessment/Plan Assessment/Plan ASSESSMENT AND RECOMMENDATIONS: 1. Leukopenia, potentially secondary to infection versus hepatitis C++ on lab this admission --> tsh has been ordered as well since she c/o fatigue 2. Colonic mass, questionable mass versus stricture. [place] shows no mass that is noted --> bowel regimen and miralax has been ordered 3. Relative thrombocytopenia, current platelet count 166, dropped recently. --> repeat cbc to make sure stable 4. Elevated lipase. Further management with GI Service. 5. Nausea and vomiting, likely secondary to stricture. 6. 1.7 x 1.5 cm low-density lesion in the liver adjacent to the inferior vena cava. --> repeat a US of the abdomen I appreciate the consultation. Subjective Constitutional: Denies: no symptoms, chills, diaphoresis, fever, malaise, weakness, other HEENT: Denies: no symptoms, eye pain, blurred vision, tearing, double vision, ear pain, ear discharge, nose pain, nose congestion, throat pain, throat swelling, mouth pain, mouth swelling, other Cardiovascular: Denies: no symptoms, chest pain, edema, irregular heart rate, lightheadedness, palpitations, syncope, other Respiratory: Denies: no symptoms, cough, orthopnea, shortness of breath, SOB with excertion, SOB at rest, sputum, stridor, wheezing, other Gastrointestinal/Abdominal: Denies: no symptoms, abdomen distended, abdominal pain, black stools, tarry stools, blood in stool, constipated, diarrhea, difficulty swallowing, nausea, poor appetite, poor fluid intake, rectal bleeding , vomiting, other Genitourinary: Denies: no symptoms, burning, discharge, frequency, flank pain, hematuria, incontinence, pain, urgency, other Neurologic/Psychiatric: Denies: no symptoms, anxiety, depressed, emotional problems, headache, numbness, paresthesia, pre-existing deficit, seizure, tingling, tremors, weakness, other Endocrine: Denies: no symptoms, excessive sweating, flushing, intolerance to cold, intolerance to heat, increased hunger, increased thirst, increased urine, unexplained weight gain, unexplained weight loss, other Hematologic/Lymphatic: Denies: no symptoms, anemia, easy bleeding, easy bruising, other Allergies: Coded Allergies: No Known Allergies (Unverified , 06/06/18) Subjective leukopenia today better, c/o fatigue and tsh ordered Objective Last 24 Hour Vital Signs Date Time Temp Pulse Resp B/P (MAP) Pulse Ox O2 Delivery O2 Flow Rate FiO2 06/12/18 09:00 Room Air 06/12/18 08:00 98.1 86 20 117/83 (94) 98 98.1 06/12/18 04:00 98.1 72 18 128/68 (88) 98 98.1 06/12/18 00:00 97.7 69 18 127/72 (90) 99 97.7 06/11/18 21:00 Room Air 06/11/18 20:00 98.1 66 19 133/92 (106) 100 98.1 06/11/18 16:00 98.0 86 20 111/68 (82) 97 98.0 06/11/18 11:50 98.2 76 20 112/76 (88) 99 98.2 Intake and Output 06/11/18 06/12/18 19:00 07:00 Intake Total 2120 ml 960 ml Balance 2120 ml 960 ml Intake Oral 1020 ml 360 ml IV Total 1100 ml 600 ml # Voids 3 3 Laboratory Tests 06/12/18 06:25: White Blood Count 4.9, Red Blood Count 4.57, Hemoglobin 14.6, Hematocrit 41.1, Mean Corpuscular Volume 90, Mean Corpuscular Hemoglobin 31.9H, Mean Corpuscular Hemoglobin Concent 35.4, Red Cell Distribution Width 10.2L, Platelet Count 198, Mean Platelet Volume 4.9L, Neutrophils (%) (Auto) 77.0H, Lymphocytes (%) (Auto) 13.2L, Monocytes (%) (Auto) 6.6, Eosinophils (%) (Auto) 2.2, Basophils (%) (Auto ) 1.0, Sodium Level 140, Potassium Level 3.9, Chloride Level 104, Carbon Dioxide Level 26, Anion Gap 10, Blood Urea Nitrogen 6L, Creatinine 1.0, Estimat Glomerular Filtration Rate > 60, Glucose Level 103, Calcium Level 9.0 Height (Feet): 5 Height (Inches): 4.00 Weight (Pounds): 122 General Appearance: alert EENT: TMs normal Neck: supple Cardiovascular: regular rhythm Respiratory/Chest: lungs clear Abdomen: non tender Extremities: non-tender Edema: 1+ Arm (L), 1+ Arm (R), 1+ Leg (L), 1+ Leg (R) Edema: mild edema Neurologic: alert Ryan Banks MD Jun 12, 2018 10:57
[2018-06-12] MEDS ORDERED: Tamsulosin 0.4mg cap ORAL SCH (11:15)
--- NOTE | 2018-06-12 11:34 | GI Progress Note ---
Assessment/Plan Problems: (1) Colonic stricture ICD Codes: K56.699 - Other intestinal obstruction unspecified as to partial versus complete obstruction SNOMED: 1371916 (2) Large bowel obstruction ICD Codes: K56.609 - Unspecified intestinal obstruction, unspecified as to partial versus complete obstruction SNOMED: 092888877 Status: stable Status Narrative Discussed with Dr. Davidson. Assessment/Plan Hep C positive s/p colonoscopy FINDINGS: 1. The area 35 cm from the anal verge, there was evidence of bowel edema and associated luminal narrowing without any obvious ulcerations or mass status post biopsy. 2. Internal hemorrhoids. RECOMMENDATIONS: okay for DC per GI standpoint follow up surgical recommendations Follow up biopsy results and treat accordingly. >> benign mucosa outpatient Hep C treatment fu labs The patient was seen and examined at bedside and all new and available data was reviewed in the patients chart. I agree with the above findings, impression and plan. (Patient seen earlier today. Signature stamp does not reflect patient encounter time.). - Ciro Davidson MD Subjective Subjective tolerating diet passing flatus Objective Last 24 Hour Vital Signs Date Time Temp Pulse Resp B/P (MAP) Pulse Ox O2 Delivery O2 Flow Rate FiO2 06/12/18 09:00 Room Air 06/12/18 08:00 98.1 86 20 117/83 (94) 98 98.1 06/12/18 04:00 98.1 72 18 128/68 (88) 98 98.1 06/12/18 00:00 97.7 69 18 127/72 (90) 99 97.7 06/11/18 21:00 Room Air 06/11/18 20:00 98.1 66 19 133/92 (106) 100 98.1 06/11/18 16:00 98.0 86 20 111/68 (82) 97 98.0 06/11/18 11:50 98.2 76 20 112/76 (88) 99 98.2 Intake and Output 06/11/18 06/12/18 19:00 07:00 Intake Total 2120 ml 960 ml Balance 2120 ml 960 ml Intake Oral 1020 ml 360 ml IV Total 1100 ml 600 ml # Voids 3 3 Laboratory Tests Test 06/12/18 06:25 White Blood Count 4.9 K/UL (4.8-10.8) Red Blood Count 4.57 M/UL (4.20-5.40) Hemoglobin 14.6 G/DL (12.0-16.0) Hematocrit 41.1 % (37.0-47.0) Mean Corpuscular Volume 90 FL (80-99) Mean Corpuscular Hemoglobin 31.9 PG (27.0-31.0) H Mean Corpuscular Hemoglobin Concent 35.4 G/DL (32.0-36.0) Red Cell Distribution Width 10.2 % (11.6-14.8) L Platelet Count 198 K/UL (150-450) Mean Platelet Volume 4.9 FL (6.5-10.1) L Neutrophils (%) (Auto) 77.0 % (45.0-75.0) H Lymphocytes (%) (Auto) 13.2 % (20.0-45.0) L Monocytes (%) (Auto) 6.6 % (1.0-10.0) Eosinophils (%) (Auto) 2.2 % (0.0-3.0) Basophils (%) (Auto) 1.0 % (0.0-2.0) Sodium Level 140 MMOL/L (136-145) Potassium Level 3.9 MMOL/L (3.5-5.1) Chloride Level 104 MMOL/L (98-107) Carbon Dioxide Level 26 MMOL/L (21-32) Anion Gap 10 mmol/L (5-15) Blood Urea Nitrogen 6 mg/dL (7-18) L Creatinine 1.0 MG/DL (0.55-1.30) Estimat Glomerular Filtration Rate > 60 mL/min (>60) Glucose Level 103 MG/DL (74-106) Calcium Level 9.0 MG/DL (8.5-10.1) Thyroid Stimulating Hormone (TSH) 1.123 uiU/mL (0.358-3.740) Height (Feet): 5 Height (Inches): 4.00 Weight (Pounds): 122 General Appearance: WD/WN, no apparent distress, alert Cardiovascular: normal rate Respiratory/Chest: normal breath sounds, no respiratory distress Abdominal Exam: normal bowel sounds, non tender, soft Extremities: normal range of motion, non-tender Nany Joy MALTSTER Jun 12, 2018 11:34
--- NOTE | 2018-06-12 12:07 | General Surgery Progress Note ---
General Surgery-Progress Note Subjective Symptoms: improved, pain absent, tolerating diet, passing flatus, BM Objective Last 24 Hour Vital Signs Date Time Temp Pulse Resp B/P (MAP) Pulse Ox O2 Delivery O2 Flow Rate FiO2 06/12/18 09:00 Room Air 06/12/18 08:00 98.1 86 20 117/83 (94) 98 98.1 06/12/18 04:00 98.1 72 18 128/68 (88) 98 98.1 06/12/18 00:00 97.7 69 18 127/72 (90) 99 97.7 06/11/18 21:00 Room Air 06/11/18 20:00 98.1 66 19 133/92 (106) 100 98.1 06/11/18 16:00 98.0 86 20 111/68 (82) 97 98.0 I&O Intake and Output 06/11/18 06/12/18 19:00 07:00 Intake Total 2120 ml 960 ml Balance 2120 ml 960 ml Intake Oral 1020 ml 360 ml IV Total 1100 ml 600 ml # Voids 3 3 Drains: none Cardiovascular: RSR Respiratory: clear Abdomen: soft, flat, non-tender, present bowel sounds Extremities: no edema, no tenderness, no cyanosis Laboratory Tests Test 06/12/18 06:25 White Blood Count 4.9 K/UL (4.8-10.8) Red Blood Count 4.57 M/UL (4.20-5.40) Hemoglobin 14.6 G/DL (12.0-16.0) Hematocrit 41.1 % (37.0-47.0) Mean Corpuscular Volume 90 FL (80-99) Mean Corpuscular Hemoglobin 31.9 PG (27.0-31.0) H Mean Corpuscular Hemoglobin Concent 35.4 G/DL (32.0-36.0) Red Cell Distribution Width 10.2 % (11.6-14.8) L Platelet Count 198 K/UL (150-450) Mean Platelet Volume 4.9 FL (6.5-10.1) L Neutrophils (%) (Auto) 77.0 % (45.0-75.0) H Lymphocytes (%) (Auto) 13.2 % (20.0-45.0) L Monocytes (%) (Auto) 6.6 % (1.0-10.0) Eosinophils (%) (Auto) 2.2 % (0.0-3.0) Basophils (%) (Auto) 1.0 % (0.0-2.0) Sodium Level 140 MMOL/L (136-145) Potassium Level 3.9 MMOL/L (3.5-5.1) Chloride Level 104 MMOL/L (98-107) Carbon Dioxide Level 26 MMOL/L (21-32) Anion Gap 10 mmol/L (5-15) Blood Urea Nitrogen 6 mg/dL (7-18) L Creatinine 1.0 MG/DL (0.55-1.30) Estimat Glomerular Filtration Rate > 60 mL/min (>60) Glucose Level 103 MG/DL (74-106) Calcium Level 9.0 MG/DL (8.5-10.1) Thyroid Stimulating Hormone (TSH) 1.123 uiU/mL (0.358-3.740) Plan Problems: (1) Large bowel obstruction Assessment & Plan: 42 year old female with large bowel obstruction. etiology unknown. has been obstructed for 14+ days likely. CT with significant stool throughout colon. exam with distention and palpable enlarged stool filled colon. CT demonstrates area of possible sigmoid structure vs mass? 1. Large amount of stool throughout the colon. This appears most prominent in the ascending and transverse colon. 2. A focal area of narrowing is seen in the region of the sigmoid colon in the left lower quadrant (image 65 of series 3). This may be related to a focal area of spasm. A stricture or neoplastic process cannot entirely be excluded. Consider barium enema exam or colonoscopy for further evaluation. s/p colonoscopy - narrowing. biopsy taken improving passing flatus and BM's tolerating diet okay to d/c from surgical standpoint f/u as outpatient. office info given to patient bowel regimen to ensure not constipated patient has small ventral hernia vs lipoma. can remove as outpatient if desired. -thank you for this consultation. will follow with recs. Alec Crowe Jun 12, 2018 12:07
--- NOTE | 2018-06-12 16:48 | Diagnostic Imaging Report ---
Indication: Epigastric pain Technique: Morgan-scale and duplex images of the upper abdomen were obtained Comparison: . Reference made to CT scan dated 06/06/2018 Findings: Gallbladder demonstrates sludge and small stones. No wall thickening nor pericholecystic fluid. Sonographic Aguilar's sign is negative. Common bile duct measures 5 mm in diameter. No intrahepatic biliary ductal dilatation. Liver demonstrates normal echogenicity. Within segment one, there is an echogenic mass measuring 16 mm diameter. Portal vein and hepatic veins are patent. Pancreas is unremarkable. Spleen is unremarkable. Left kidney measures 9.1 cm in length. Right kidney measures 9.3 cm length. Both kidneys demonstrate normal echogenicity. There is no hydronephrosis. No echogenic areas in the bilateral renal sinuses most likely represent prominent renal sinus fat, as no calculi are demonstrated on recent CT. Non-aneurysmal abdominal aorta . Impression: Cholelithiasis. Negative for dilated ducts Echogenic mass within the right hepatic lobe, likely although not definitively a benign hemangioma. Recommend short interval follow-up CT or sonography in 6 months
[2018-06-12] MEDS ORDERED: SENNA-GEN8.6 M1 ORAL (17:16)
[2018-06-12] MEDS ORDERED: BISAC-EVAC10 MG RECTAL (17:16)
[2018-06-12] MEDS ORDERED: DOK100 M1 ORAL (17:16)
--- NOTE | 2018-06-12 17:18 | Discharge Instructions ---
Discharge Instructions Discharge Instructions Follow up with: Civil Litigation Attorney for colon biopsy results and evaluation of liver nodule Call MD/Return to Hospital if: Any worsening of your condition Diet: regular Resume Normal Activity?: Yes Activity: resume normal activities Special Instructions Follow up with GI doctor for colon biopsy results and further evaluation of liver nodule For Congestive Heart Failure Reminder Report to your physician any weight gain of 5 pounds or more in one week. Salvatore De Luna MD Jun 12, 2018 17:18
--- NOTE | 2018-06-12 17:27 | Discharge Summary ---
Discharge Summary Hospital Course Date of Admission Jun 06, 2018 at 20:49 Date of Discharge 06/12/18 Admitting Diagnosis large bowel obstruction ZOHRA Rothman is a 42 year old female who was admitted on Jun 06, 2018 at 20: 49 for Large Bowel Obstruction Consultations GI General Surgery Procedures Colonoscopy with possible stricture Hospital Course Patient presented with nausea, vomiting and abdominal pain, admitted to the medical service with severe constipation, large bowel obstruction. CT A/P showed 1. Large amount of stool throughout the colon. This appears most prominent in the ascending and transverse colon. 2. A focal area of narrowing is seen in the region of the sigmoid colon in the left lower quadrant (image 65 of series 3). This may be related to a focal area of spasm. A stricture or neoplastic process cannot entirely be excluded. Consider barium enema exam or colonoscopy for further evaluation. 3. Small hiatal hernia. 4. 1.7 x 1.5 cm low-density lesion in the liver adjacent to the inferior vena cava. Recommend follow-up abdominal CT or MR in 6 months for patients with low risk of malignancy, multiphasic MR for average risk patients and core biopsy for high risk patient Patient was seen by GI, General Surgery and Heme/Onc. She was treated with bowel regimen and underwent colonoscopy with improvement in her constipation. She had biopsies of the stricture done which will need to be followed up as an outpatient with GI service. Liver lesions will also need to be further evaluated as an outpatient. She will be discharged back to her senior living in improved condition, tolerating diet and having bowel movements. Time spent discharge Ms Rothman was 35 minutes including reviewing discharge instructions with the patient, coordinating with nursing and consultants. Discharge Discharge Disposition Patient was discharged to Discharge Diagnoses: (1) Large bowel obstruction (2) Colonic stricture Discharge Instructions Discharge Instructions Follow up with: Physical Metallurgist for colon biopsy results and evaluation of liver nodule Call MD/Return to Hospital if: Any worsening of your condition Activity: resume normal activities Salvatore De Luna MD Jun 12, 2018 17:27
== END 2018-06-12 18:15 | disposition short-term general hospital (02) | DRG 388 ==
LOC: EMR 17:45 → 3E 20:49 → EDBEDREQ 21:04
PROC: 0DBP8ZX Excision of Rectum, Via Natural or Artificial Opening Endoscopic, Diagnostic (ICD-10-PCS; principal; 2018-06-10 11:52)
DX: K56.699 Other intestinal obstruction unspecified as to partial versus complete obstruction (principal); K85.90 Acute pancreatitis without necrosis or infection, unspecified; F50.2 Bulimia nervosa; F41.8 Other specified anxiety disorders; K44.9 Diaphragmatic hernia without obstruction or gangrene; K64.8 Other hemorrhoids; D69.6 Thrombocytopenia, unspecified
CPT/HCPCS: 36415; 74018; 74177; 76700; 80048; 80053; 83690; 83735; 84443; 84703; 85025; 85610; 85730; 86703; 86705; 86709; 86803; 87081; 87340; 94003; 94150; 96360; 99285